=== PATIENT | male | born 1935 | race Caucasian/White ===

== ENCOUNTER 2016-10-06 13:03 | Inpatient (IN) | payer BC, MEDICARE ==
[2016-10-06] MEDS ORDERED: ceFAZolin 1 GM in Dextrose (*) 1 GM/50 ML BAG IVPB ONE (13:44)
[2016-10-06] MEDS ORDERED: NS 0.9% 1000 ML* 1,000 ML IV ONE (13:45)
[2016-10-06 14:21] LABS: Hematocrit 40 % (42-52); Hemoglobin 13.1 g/dl (14.0-18.0); Mean Corpuscular HGB Conc 33 g/dl (31-36); Mean Corpuscular Hemoglobin 30 pg (27-31); Mean Corpuscular Volume 91 fL (80-94); Mean Platelet Volume 8 um3 (7.4-10.4); Red Blood Count 4.42 10^6/ul (4.0-5.4); Red Cell Distribution Width 14 % (10.5-15); White Blood Count 16.9 10^3/ul (3.5-10.8)
--- NOTE | 2016-10-06 14:31 | RAD ---
HISTORY: Right leg erythema, cancer COMPARISONS: None relevant TECHNIQUE: Multiple transverse and longitudinal ultrasound images were obtained of the right lower extremity from the level of the common femoral vein inferiorly through to the infrapopliteal veins using grayscale, color Doppler, and spectral Doppler imaging with and without compression and with augmentation. Comparison images were obtained of the contralateral common femoral vein. FINDINGS: VEINS: The venous system of the right lower extremity is compressible throughout its course, with normal flow on color Doppler imaging and normal response to augmentation on spectral Doppler imaging. SOFT TISSUES: Unremarkable. OTHER FINDINGS: None. IMPRESSION: NO RIGHT LOWER EXTREMITY DEEP VEIN THROMBOSIS
--- NOTE | 2016-10-06 14:31 | RAD ---
HISTORY: Right leg erythema, pain COMPARISONS: None VIEWS: 6, Frontal, lateral, and oblique views of the right foreleg and right foot FINDINGS: BONE DENSITY: There is diffuse osteopenia. BONES: There is no displaced fracture. There is no appreciable erosion or periosteal reaction. There are calcaneal enthesophytes JOINTS: There is osteoarthritis of the first MCP joint and of the midfoot. There is osteoarthritis of the ankle. ALIGNMENT: There is no dislocation. SOFT TISSUES: There is peripheral arterial calcification OTHER FINDINGS: None. IMPRESSION: 1. OSTEOARTHRITIS. 2. PERIPHERAL ARTERIAL DISEASE. 3. NO ACUTE OSSEOUS INJURY TO THE RIGHT FOOT OR FORELEG. 4. NO APPRECIABLE EROSION OR PERIOSTEAL REACTION. IF SYMPTOMS PERSIST, RECOMMEND REPEAT IMAGING
[2016-10-06 14:36] LABS: Albumin 3.3 g/dL (3.2-5.2); BUN/Creatinine Ratio 14.6 (8-20); C Reactive Protein 123.89 mg/L (< 5.00); EGFR African American 64.1 (>60); EGFR Non-African American 49.9 (>60); Globulin 4.2 g/dL (2-4); Potassium 4.2 mmol/L (3.5-5.0); Total Bilirubin 0.6 mg/dL (0.2-1.0); Total Protein 7.5 g/dL (6.4-8.9)
--- NOTE | 2016-10-06 15:06 | ED ---
Benjamín Cummings Benjamin, scribed for Melonie Ruiz MD on 10/06/16 at 1420 . Lower Extremity - History of Current Complaint Chief Complaint: EDExtremityLower Stated Complaint: LOWER EXTREMITY PAIN Time Seen by Provider: 10/06/16 13:41 Hx Obtained From: Patient Mechanism Of Injury: Unknown - no known injury Onset of Pain: Days Onset/Duration: Still Present Severity Initially: Mild Severity Currently: Mild Pain Intensity: 0 Pain Scale Used: 0-10 Numeric Timing: Constant Location: Is Discrete @ - Right lower leg Associated Signs And Symptoms: Positive: Swelling, Redness Aggravating Factor(s): Movement Alleviating Factor(s): Rest Able to Bear Weight: Yes - Allergies/Home Medications Allergies/Adverse Reactions: Allergies Allergy/AdvReac Type Severity Reaction Status Date / Time No Known Allergies Allergy Verified 10/06/16 14:08 PMH/Surg Hx/FS Hx/Imm Hx Cardiovascular History: Reports: Hx Hypertension - Cancer History Cancer Type, Location and Year: Bladder CA, Prostate CA Infectious Disease History: No Infectious Disease History: Denies: Traveled Outside the [place] in Last 30 Days - Family History Known Family History: Negative: Cardiac Disease, Hypertension, Diabetes - Social History Occupation: Employed Full-time Lives: With Family Review of Systems Constitutional: Negative Eyes: Negative ENT: Negative Cardiovascular: Negative Respiratory: Negative Gastrointestinal: Negative Genitourinary: Negative Positive: Myalgia - RLE pain, Edema - right leg Positive: Other - erythema @ RLE Neurological: Negative Negative: Weakness, Paresthesia Psychological: Normal Positive: Depressed All Other Systems Reviewed And Are Negative: Yes Physical Exam Triage Information Reviewed: Yes Vital Signs On Initial Exam: Initial Vitals Temp Pulse Resp BP Pulse Ox 99.0 F 66 16 122/60 94 10/06/16 13:13 10/06/16 13:13 10/06/16 13:13 10/06/16 13:13 10/06/16 13:13 Vital Signs Reviewed: Yes Appearance: Positive: Well-Appearing, No Pain Distress, Well-Nourished Skin: Positive: Warm, Skin Color Reflects Adequate Perfusion, Erythema @ - RLE ( pham) Head/Face: Positive: Normal Head/Face Inspection Eyes: Positive: EOMI, FILOMENA ENT: Positive: Hearing grossly normal, Pharynx normal, TMs normal Neck: Positive: Supple, Nontender Respiratory/Lung Sounds: Positive: Clear to Auscultation, Breath Sounds Present Cardiovascular: Positive: RRR Abdomen Description: Positive: Nontender, No Organomegaly, Soft Bowel Sounds: Positive: Present Musculoskeletal: Positive: Strength/ROM Intact, Pain @ - right leg, Edema Right - right leg. Negative: Edema Left Neurological: Positive: Sensory/Motor Intact, Alert, Oriented to Person Place, Time, CN Intact II-III Psychiatric: Positive: Affect/Mood Appropriate Diagnostics - Vital Signs Vital Signs Temp Pulse Resp BP Pulse Ox 10/06/16 13:13 99.0 F 66 16 122/60 94 - Laboratory Lab Results: Lab Results 10/06/16 10/06/16 10/06/16 Range/Units 13:45 13:45 13:45 WBC 16.9 H (3.5-10.8) 10^3/ul RBC 4.42 (4.0-5.4) 10^6/ul Hgb 13.1 L (14.0-18.0) g/dl Hct 40 L (42-52) % MCV 91 (80-94) fL MCH 30 (27-31) pg MCHC 33 (31-36) g/dl RDW 14 (10.5-15) % Plt Count 376 (150-450) 10^3/ul MPV 8 (7.4-10.4) um3 Neut % (Auto) 91.5 H (38-83) % Lymph % (Auto) 3.7 L (25-47) % Webb % (Auto) 4.3 (1-9) % Eos % (Auto) 0.1 (0-6) % Baso % (Auto) 0.4 (0-2) % Absolute Neuts (auto) 15.5 H (1.5-7.7) 10^3/ul Absolute Lymphs (auto) 0.6 L (1.0-4.8) 10^3/ul Absolute Monos (auto) 0.7 (0-0.8) 10^3/ul Absolute Eos (auto) 0 (0-0.6) 10^3/ul Absolute Basos (auto) 0.1 (0-0.2) 10^3/ul Absolute Nucleated RBC 0 10^3/ul Nucleated RBC % 0 Sodium 136 (133-145) mmol/L Potassium 4.2 (3.5-5.0) mmol/L Chloride 102 (101-111) mmol/L Carbon Dioxide 28 (22-32) mmol/L Anion Gap 6 (2-11) mmol/L BUN 20 (6-24) mg/dL Creatinine 1.37 H (0.67-1.17) mg/dL Est GFR ( Amer) 64.1 (>60) Est GFR (Non-Af Amer) 49.9 (>60) BUN/Creatinine Ratio 14.6 (8-20) Glucose 105 H (70-100) mg/dL Lactic Acid 0.8 (0.5-2.0) mmol/L Calcium 9.0 (8.6-10.3) mg/dL Total Bilirubin 0.60 (0.2-1.0) mg/dL AST 12 L (13-39) U/L ALT 5 L (7-52) U/L Alkaline Phosphatase 90 (34-104) U/L C-Reactive Protein 123.89 H (< 5.00) mg/L Total Protein 7.5 (6.4-8.9) g/dL Albumin 3.3 (3.2-5.2) g/dL Globulin 4.2 H (2-4) g/dL Albumin/Globulin Ratio 0.8 L (1-3) Result Diagrams: 10/06/16 13:45 10/06/16 13:45 Lab Statement: Any lab studies that have been ordered have been reviewed, and results considered in the medical decision making process. - Radiology Right Lower Leg XR Xray Interpretation: Positive (See Comments) - IMPRESSION: 1. OSTEOARTHRITIS. 2. PERIPHERAL ARTERIAL DISEASE. 3. NO ACUTE OSSEOUS INJURY TO THE RIGHT FOOT OR FORELEG. 4. NO APPRECIABLE EROSION OR PERIOSTEAL REACTION. IF SYMPTOMS PERSIST, RECOMMEND REPEAT IMAGING Radiology Interpretation Completed By: Radiologist Right Foot XR Xray Interpretation: Positive (See Comments) Radiology Interpretation Completed By: Radiologist - Ultrasound No standard instances Ultrasound Interpretation: No Acute Changes - VQ Right Leg: NO DVT Lower Extremity Course/Dx - Course Course Of Treatment: 81 yo male with cellulitis to his left lower extremity with wbc of 17 to be admitted by Dr. Noyola and his team - Diagnoses Provider Diagnoses: Cellulitis - Physician Notifications Discussed Care of Patient With: Dr. Noyola (Hospitalist) @1758. Discharge - Discharge Plan Condition: Stable Disposition: ADMITTED TO [facility] documentation as recorded by the Benjamín sierra Benjamin accurately reflects the service I personally performed and the decisions made by me, Melonie Ruiz MD.
[2016-10-06] MEDS ORDERED: Loperamide CAP* 2 MG PO PRN (15:42)
--- NOTE | 2016-10-06 19:46 | HP ---
HOSPITAL MEDICINE HISTORY AND PHYSICAL: DATE OF ADMISSION: 10/06/16 PRIMARY CARE PHYSICIAN: Dr. Ramirez. ATTENDING PHYSICIAN: Dr. Jeevan Noyola *(dictation provided by Ash Carvajal NP) . CHIEF COMPLAINT: Right lower extremity redness and swelling. HISTORY OF PRESENT ILLNESS: Mr. Wilkinson is an 81-year-old male with a past medical history of bladder cancer, status post bladder and prostate resection with placement of conduit from the small bowel, who presents today to the hospital with concern for right lower extremity redness and swelling. Mr. Wilkinson states that his redness and swelling in his right lower extremity began 3 days ago. It has become more painful. He went to work today and showed his employer who felt that he should be evaluated. He did go to [facility] and then was transitioned to [facility] Emergency Department. The patient states he has felt warm with a temperature up to approximately 100.7. He denies any chills. He has been eating and drinking normally. He has no chest pain, shortness of breath, nausea, or abdominal pain. In the emergency room, Mr. Wilkinson was confirmed to have significant redness in the right lower extremity. He did have a foot x-ray, a lower extremity x-ray, and a venous Doppler study on the right, which were all negative. He does have a leukocytosis with a white count of 16.9. His creatinine is elevated at 1.37, but I do not have the baseline available for comparison. His C-reactive protein is 123.89. Based on Mr. Wilkinson's presentation with right lower extremity redness and swelling and suspected cellulitis, Hospital Medicine was called regarding admission. PAST MEDICAL HISTORY: 1. Bladder cancer, status post resection of bladder and prostate with placement of conduit from the small bowel 11 years ago. 2. Diverticulosis. 3. History of pulmonary fibrosis. MEDICATIONS: 1. Aspirin 81 mg p.o. daily. 2. Vitamin D 400 units p.o. daily. 3. Cyanocobalamin 500 mcg p.o. daily. 4. Loperamide 2 mg p.o. daily. 5. Multivitamin 1 tab p.o. daily. ALLERGIES: No known drug allergies. FAMILY HISTORY: The patient reports his father related to multiple myeloma , mother related to pancreatic cancer, and brother related to brain cancer. He has no healthcare proxy. REVIEW OF SYSTEMS: A 14-point review of systems was completed with Mr. Wilkinson and all those not mentioned above were negative. PHYSICAL EXAMINATION GENERAL: Mr. Wilkinson is lying in the bed. He is in no acute distress. He is calm and cooperative to my examination. VITAL SIGNS: Temperature 99.0, pulse rate 66, respiratory rate 16, O2 saturation 94% on room air, blood pressure 122/60. LUNGS: Clear to auscultation bilaterally with no accessory muscle use and good aeration. HEART: S1, S2. No murmur, rub, or gallop, and regular. ABDOMEN: Soft, nontender with bowel sounds positive x4. EXTREMITIES: No cyanosis. Positive for edema from the knee down to the foot on the right with erythema from the knee to the ankle. The foot is spared. NEURO: He is alert and oriented x3. He moves all extremities equally. There is no facial asymmetry or focal weakness. Extraocular movements are intact. ASSESSMENT AND PLAN: Mr. Wilkinson is an 81-year-old male with past medical history of bladder cancer, status post bladder and prostate resection with conduit through the small bowel and ostomy, who presents today for right lower extremity redness and swelling and suspected cellulitis. Our recommendations are for observation in the hospital for the followin. Cellulitis: The patient has significant leukocytosis and elevation of CRP secondary to the cellulitis. Our plans will be for intravenous antibiotics overnight. The patient will have the lower extremity elevated at all times. 2. DVT prophylaxis with heparin subcu. 3. Disposition to medical floor for observation. TIME SPENT: Approximately 60 minutes was spent on the admission of this patient , more than half time spent with the patient at the bedside reviewing the events leading up to this hospitalization, performing the physical examination, and reviewing my plan of care. ASH CARVAJAL NP CC: Dr. Ramirez * [id number]/[facility] #: [id number] SAL
[2016-10-06] MEDS: Heparin VIAL(*) 5000 UNITS/ML VIAL (FIVE THOUSAND) SUBCUT SCH (20:59)
[2016-10-06] MEDS: ceFAZolin 1 GM in Dextrose (*) 1 GM/50 ML BAG IVPB SCH (21:27)
[2016-10-06] MEDS: Acetaminophen TAB* 325 MG PO PRN (23:56)
[2016-10-07] MEDS: ceFAZolin 1 GM in Dextrose (*) 1 GM/50 ML BAG IVPB SCH ×3 (05:21→21:13)
[2016-10-07] MEDS: Heparin VIAL(*) 5000 UNITS/ML VIAL (FIVE THOUSAND) SUBCUT SCH ×3 (06:00→21:13)
[2016-10-07 06:40] LABS: Hematocrit 36 % (42-52); Hemoglobin 12.2 g/dl (14.0-18.0); Mean Corpuscular HGB Conc 34 g/dl (31-36); Mean Corpuscular Hemoglobin 31 pg (27-31); Mean Corpuscular Volume 90 fL (80-94); Mean Platelet Volume 8 um3 (7.4-10.4); Red Blood Count 3.99 10^6/ul (4.0-5.4); Red Cell Distribution Width 13 % (10.5-15); White Blood Count 9.5 10^3/ul (3.5-10.8)
[2016-10-07 06:53] LABS: BUN/Creatinine Ratio 14.3 (8-20); Calcium 8.4 mg/dL (8.6-10.3); EGFR African American 70.6 (>60); EGFR Non-African American 54.9 (>60); Potassium 4.1 mmol/L (3.5-5.0)
[2016-10-07] MEDS: Cholecalciferol TAB* 400 UNIT PO SCH (10:12)
[2016-10-07] MEDS: Cyanocobalamin TAB* 500 MCG PO SCH (10:12)
[2016-10-07] MEDS: Aspirin EC Low Dose* 81 MG TAB.EC PO SCH (10:12)
[2016-10-07] MEDS: Multivitamins/Minerals TAB PO SCH (10:12)
--- NOTE | 2016-10-07 14:23 | PN ---
Subjective Date of Service: 10/07/16 Interval History: This is an 81 yo gentleman with a h/o bladder CA s/p resection who presented with RLE cellulitis and admitted yesterday afternoon. Patient was placed on Cefazolin. He states that the leg appears better this. The associated pain and swelling have improved. He has been afebrile overnight, he was noted to be febrile yesterday afternoon to ~100.7F. He denies CP, SOB, abd pain, n/v. Objective Active Medications: Acetaminophen (Tylenol Tab*) 650 mg PO Q6H PRN PRN Reason: PAIN Last Admin: 10/06/16 23:56 Dose: 650 mg Aspirin (Aspirin Ec Low Dose*) 81 mg PO DAILY [facility] Last Admin: 10/07/16 10:12 Dose: 81 mg Cholecalciferol (Vitamin D Tab*) 400 unit PO DAILY [facility] Last Admin: 10/07/16 10:12 Dose: 400 unit Cyanocobalamin (Vitamin B12 Tab*) 500 mcg PO DAILY [facility] Last Admin: 10/07/16 10:12 Dose: 500 mcg Heparin Sodium (Porcine) (Heparin Vial(*)) 5,000 units SUBCUT Q8HR [facility] Last Admin: 10/07/16 06:00 Dose: 5,000 units Cefazolin Sodium/Dextrose (Kefzol 1 Gm In Dextrose Duplex (*)) 1 gm in 50 mls @ 200 mls/hr IVPB Q8H [facility] Last Admin: 10/07/16 05:21 Dose: 200 mls/hr Loperamide HCl (Imodium Cap*) 2 mg PO DAILY PRN PRN Reason: DIARRHEA Multivitamins/Minerals (Theragran/Minerals Tab*) 1 tab PO DAILY [facility] Last Admin: 10/07/16 10:12 Dose: 1 tab Vital Signs 10/07/16 11:10 Temperature 98.2 F Pulse Rate 62 Respiratory 16 Rate Blood Pressure 164/62 (mmHg) O2 Sat by Pulse 97 Oximetry Oxygen Devices in Use Now: None Appearance: Well appearing, in NAD Respiratory: Symmetrical Chest Expansion and Respiratory Effort, Clear to Auscultation Cardiovascular: NL Sounds; No Murmurs; No JVD, RRR Abdominal: NL Sounds; No Tenderness; No Distention Extremities: - - trace to 1+ RLE edema Skin: - - erythema from distal knee to proximal ankle without associated abscess. He has 2 areas of open ulceration over plantar surface of R 2nd and 3rd toes without significant surrounding erythema or fluctuance Neurological: Alert and Oriented x 3 Result Diagrams: 10/07/16 06:11 10/07/16 06:11 Additional Lab and Data: . Diagnostic Imaging: US LE - No DVT XR foot/lower leg- no erosion, evidence of PAD Assess/Plan/Problems-Billing Assessment: This is an 81 yo gentleman with a h/o bladder CA s/p resection with ileal conduit who presents with RLE cellulitis. - Patient Problems (1) Cellulitis Comment: Noted clinical improvement and afebrile overnight 1/ blood culture bottles were positive for gram + bacilli, now identified to be a bacillus species This likely represents a contaminant, but will repeat blood cultures today and wait for the remainder to be reported at 24 hours (2) Hypertension Comment: Patient noted to be moderately hypertensive today, normotensive at admission Unsure what the chronicity of this is Patient would benefit from further outpt monitoring and treatment if he's persistently hypertensive (3) History of bladder cancer Status and Disposition: Patient would benefit from establishing primary care services, he has not seen anyone routinely for quite some time. He requires continued hospital stay, will transition to inpatient status. Anticipate possible discharge tomorrow.
[2016-10-07] MEDS ORDERED: Calcium Carbonate CHEW TAB* 500 MG (TUMS) PO PRN (19:57)
[2016-10-07] MEDS: Acetaminophen TAB* 325 MG PO PRN (23:06)
[2016-10-08] MEDS ORDERED: hydrALAZINE IV* 20 MG/ML VIAL IV SLOW PU PRN
[2016-10-08] MEDS: ceFAZolin 1 GM in Dextrose (*) 1 GM/50 ML BAG IVPB SCH ×3 (05:46→22:12)
[2016-10-08] MEDS: Heparin VIAL(*) 5000 UNITS/ML VIAL (FIVE THOUSAND) SUBCUT SCH ×3 (05:46→22:22)
[2016-10-08 06:44] LABS: Hematocrit 38 % (42-52); Hemoglobin 12.6 g/dl (14.0-18.0); Mean Corpuscular HGB Conc 33 g/dl (31-36); Mean Corpuscular Hemoglobin 30 pg (27-31); Mean Corpuscular Volume 90 fL (80-94); Mean Platelet Volume 9 um3 (7.4-10.4); Red Blood Count 4.25 10^6/ul (4.0-5.4); Red Cell Distribution Width 13 % (10.5-15); White Blood Count 15.8 10^3/ul (3.5-10.8)
[2016-10-08 06:54] LABS: BUN/Creatinine Ratio 17.9 (8-20); C Reactive Protein 113.06 mg/L (< 5.00); Calcium 8.6 mg/dL (8.6-10.3); EGFR African American 76.9 (>60); EGFR Non-African American 59.8 (>60); Potassium 3.7 mmol/L (3.5-5.0)
[2016-10-08] MEDS: Aspirin EC Low Dose* 81 MG TAB.EC PO SCH (08:47)
[2016-10-08] MEDS: amLODIPine TAB* 5 MG PO SCH (08:47)
[2016-10-08] MEDS: Cholecalciferol TAB* 400 UNIT PO SCH (08:47)
[2016-10-08] MEDS: Multivitamins/Minerals TAB PO SCH (08:48)
[2016-10-08] MEDS: Cyanocobalamin TAB* 500 MCG PO SCH (08:48)
--- NOTE | 2016-10-08 16:54 | PN ---
Subjective Date of Service: 10/08/16 Interval History: Patient reports improvement in the appearance and pain in his leg. He had an episode of severe abdominal pain and vomiting shortly after dinner last night. He is now asx. He has been quite hypertensive last night and today. Denies CP or SOB. Objective Active Medications: Acetaminophen (Tylenol Tab*) 650 mg PO Q6H PRN PRN Reason: PAIN Last Admin: 10/07/16 23:06 Dose: 650 mg Amlodipine Besylate (Norvasc Tab*) 5 mg PO DAILY [facility] Last Admin: 10/08/16 08:47 Dose: 5 mg Aspirin (Aspirin Ec Low Dose*) 81 mg PO DAILY [facility] Last Admin: 10/08/16 08:47 Dose: 81 mg Calcium Carbonate (Tums*) 500 mg PO Q4H PRN PRN Reason: HEARTBURN Last Admin: 10/07/16 20:12 Dose: 500 mg Cholecalciferol (Vitamin D Tab*) 400 unit PO DAILY [facility] Last Admin: 10/08/16 08:47 Dose: 400 unit Cyanocobalamin (Vitamin B12 Tab*) 500 mcg PO DAILY [facility] Last Admin: 10/08/16 08:48 Dose: 500 mcg Heparin Sodium (Porcine) (Heparin Vial(*)) 5,000 units SUBCUT Q8HR [facility] Last Admin: 10/08/16 14:32 Dose: 5,000 units Hydralazine HCl (Apresoline Iv*) 10 mg IV SLOW PU Q4H PRN PRN Reason: BP > 170 Last Admin: 10/08/16 00:31 Dose: 10 mg Cefazolin Sodium/Dextrose (Kefzol 1 Gm In Dextrose Duplex (*)) 1 gm in 50 mls @ 200 mls/hr IVPB Q8H [facility] Last Admin: 10/08/16 14:32 Dose: 200 mls/hr Influenza Virus Vaccine (Fluarix *Quad* *) 0.5 ml IM .ONCE ONE Stop: 10/09/16 09:01 Loperamide HCl (Imodium Cap*) 2 mg PO DAILY PRN PRN Reason: DIARRHEA Multivitamins/Minerals (Theragran/Minerals Tab*) 1 tab PO DAILY [facility] Last Admin: 10/08/16 08:48 Dose: 1 tab Vital Signs: Temp Pulse Resp BP Pulse Ox 97.9 F 70 18 140/55 96 10/08/16 11:32 10/08/16 11:32 10/08/16 11:32 10/08/16 11:32 10/08/16 11:32 Oxygen Devices in Use Now: None Appearance: Well appearing elderly gentleman in NAD Respiratory: Symmetrical Chest Expansion and Respiratory Effort Cardiovascular: NL Sounds; No Murmurs; No JVD, RRR Abdominal: NL Sounds; No Tenderness; No Distention Extremities: - - trace RLE edema, improving Skin: - - improved erythema over RLL Neurological: Alert and Oriented x 3 Result Diagrams: 10/08/16 05:52 10/08/16 05:52 Additional Lab and Data: . Diagnostic Imaging: US LE - No DVT XR foot/lower leg- no erosion, evidence of PAD Assess/Plan/Problems-Billing Assessment: This is an 81 yo gentleman with a h/o bladder CA s/p resection with ileal conduit who presents with RLE cellulitis. - Patient Problems (1) Cellulitis Comment: Noted clinical improvement and afebrile since admission 08/18 blood culture bottle was initially positive, identified as bacillus which likely is a contaminant, repeat blood cultures from yesterday are still negative WBC climbed today, possibly due to his abdominal complaints from overnight? Will plan to continue Cefazolin (2) Hypertension Comment: Noted significant hypertension overnight and this am, asx Start amlodipine 5mg (3) History of bladder cancer Status and Disposition: Anticipate possible discharge tomorrow.
[2016-10-09] MEDS: ceFAZolin 1 GM in Dextrose (*) 1 GM/50 ML BAG IVPB SCH (05:55)
[2016-10-09] MEDS: Heparin VIAL(*) 5000 UNITS/ML VIAL (FIVE THOUSAND) SUBCUT SCH (05:56)
[2016-10-09 07:28] VITALS: BP 152/67
[2016-10-09] MEDS: Cholecalciferol TAB* 400 UNIT PO SCH (07:53)
[2016-10-09] MEDS: Multivitamins/Minerals TAB PO SCH (07:53)
[2016-10-09] MEDS: Aspirin EC Low Dose* 81 MG TAB.EC PO SCH (07:53)
[2016-10-09] MEDS: Acetaminophen TAB* 325 MG PO PRN (07:53)
[2016-10-09] MEDS: amLODIPine TAB* 5 MG PO SCH (07:54)
[2016-10-09] MEDS: Cyanocobalamin TAB* 500 MCG PO SCH (07:54)
[2016-10-09 08:22] LABS: Hematocrit 38 % (42-52); Hemoglobin 12.5 g/dl (14.0-18.0); Mean Corpuscular HGB Conc 33 g/dl (31-36); Mean Corpuscular Hemoglobin 30 pg (27-31); Mean Corpuscular Volume 90 fL (80-94); Mean Platelet Volume 8 um3 (7.4-10.4); Red Blood Count 4.22 10^6/ul (4.0-5.4); Red Cell Distribution Width 14 % (10.5-15); White Blood Count 11.9 10^3/ul (3.5-10.8)
[2016-10-09 08:50] LABS: BUN/Creatinine Ratio 14.9 (8-20); C Reactive Protein 161.64 mg/L (< 5.00); Calcium 8.7 mg/dL (8.6-10.3); EGFR Non-African American 57.6 (>60); Potassium 4.3 mmol/L (3.5-5.0)
[2016-10-09] MEDS ORDERED: Influenza VAC *QUAD* 2016-17* 0.5 ML SYRINGE IM ONE (09:00)
--- NOTE | 2016-10-09 20:12 | DS ---
DISCHARGE SUMMARY: DATE OF ADMISSION: 10/06/16 DATE OF DISCHARGE: 10/09/16 PRIMARY CARE PROVIDER: Dr. Ramirez. DISCHARGING PROVIDER: CHRISTY Singh SUPERVISING PHYSICIAN: Dr. Kia Huertas.* (DICTATED BY CHRISTY SINGH) PRIMARY DISCHARGE DIAGNOSIS: Cellulitis of right lower extremity. SECONDARY DISCHARGE DIAGNOSES: 1. Hypertension, discharged on new prescription for amlodipine. 2. Chronic kidney disease, stage 3. 3. History of bladder cancer, status post radical bladder and prostate resection with ileal conduit. DISCHARGE MEDICATIONS: 1. Aspirin 81 mg p.o. daily. 2. Keflex 500 mg p.o. 4 times daily x7 days. 3. Vitamin D 400 units daily. 4. Vitamin B12 500 mcg daily. 5. Imodium 2 mg p.o. daily as needed for diarrhea. 6. Multivitamin 1 tablet p.o. daily. 7. Amlodipine 5 mg p.o. daily. Medication changes: 1. Keflex x7 days. 2. Start amlodipine. HOSPITAL IMAGIN. Right foot and lower leg x-ray is negative for acute fracture or significant degenerative changes consistent with osteomyelitis. 2. Venous Doppler study is negative for DVT. 3. EKG shows a sinus rhythm without ischemic changes. HOSPITAL COURSE: This is an 81-year-old gentleman with a remote history of bladder cancer, who presented with complaints of right lower extremity redness and swelling for the 3 days prior. The patient denied any recent injury to the area. He was noted to be mildly febrile when first evaluated at [facility] with a temperature of 100.7 degrees Fahrenheit. He had a leukocytosis with a white blood cell count of 16,900, CRP elevated to 123 at the time of admission. Creatinine was also noted to be elevated to 1.37, but there is no historical data for comparison to tell what the acuity of this was. The patient was treated for right lower extremity cellulitis with cefazolin. Blood cultures were initially positive, 1 bottle grew gram-positive bacilli, later identified as bacillus, likely a contaminant. Repeat blood cultures were negative in all 4 bottles. The patient did have one episode of nausea and vomiting that occurred shortly after eating during his hospital stay, but then has since resolved. The appearance of his leg has improved dramatically and he just has some light erythema from his inferior pole of his knee to superior portion of his ankle. His edema has nearly completely resolved and he has been afebrile throughout his hospital stay. Of note, the patient was quite hypertensive during his hospital stay. At one point, systolic pressures reached approximately 200 mmHg. The patient was asymptomatic with this. It sounds like he has been noncompliant with followup with primary care. His blood pressure was initially treated with IV hydralazine , but remained persistently elevated and he was started on amlodipine. His creatinine did initially improve slightly and was 1.2 at the time of discharge. I feel that this is likely a chronic finding and likely secondary to long- standing untreated hypertension. DISPOSITION: The patient is being discharged to home. Follow up with his primary care provider is established for next week. He is being discharged with Keflex for the next 7 days and initiated on amlodipine for blood pressure control. This will likely need to be titrated further. Blood pressures prior to discharge were in the 140s to 150s. CHRISTY SINGH CC: Dr. Ramirez* [id number]/[facility] #: [id number] MTDD
== END 2016-10-09 11:30 | disposition home or self-care (01) | DRG 383 ==
LOC: ED 13:03 → MEDTELE 15:40 → MED 22:50 → OBSVTOIN 10-07 08:34
PROVIDERS: ADMIT Internal Medicine; ATTEND Internal Medicine
PROC: 3E0234Z Introduction of Serum, Toxoid and Vaccine into Muscle, Percutaneous Approach (ICD-10-PCS; principal; 2016-10-08)
DX: L03.115 Cellulitis of right lower limb (principal); J84.10 Pulmonary fibrosis, unspecified; N18.3 Chronic kidney disease, stage 3 (moderate); I12.9 Hypertensive chronic kidney disease with stage 1 through stage 4 chronic kidney disease, or unspecified chronic kidney disease; Z85.51 Personal history of malignant neoplasm of bladder; Z79.82 Long term (current) use of aspirin; R11.2 Nausea with vomiting, unspecified; Z80.0 Family history of malignant neoplasm of digestive organs; Z80.7 Family history of other malignant neoplasms of lymphoid, hematopoietic and related tissues; Z80.8 Family history of malignant neoplasm of other organs or systems; R10.9 Unspecified abdominal pain; Z23 Encounter for immunization
CPT/HCPCS: 36415; 80048; 80053; 83036; 83605; 84484; 85025; 86140; 87040; 90686; 93005; A9270-GY; J0360; J0690; J1644

== ENCOUNTER 2017-01-08 20:47 | Emergency (ER) | payer BC, MEDICARE ==
[2017-01-08 21:11] VITALS: BP 169/86
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
== END 2017-01-08 22:18 | disposition left against medical advice (07) ==
LOC: ED 20:47
DX: M79.645 Pain in left finger(s) (principal); R51 Headache; Z87.891 Personal history of nicotine dependence
CPT/HCPCS: 99282

== ENCOUNTER 2017-02-11 18:14 | Emergency (ER) | payer BC, MEDICARE ==
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
[2017-02-11 21:23] VITALS: BP 165/80
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
== END 2017-02-11 21:15 | disposition home or self-care (01) ==
LOC: ED 18:14
DX: S16.1XXA Strain of muscle, fascia and tendon at neck level, initial encounter (principal); M62.838 Other muscle spasm; V49.9XXA Car occupant (driver) (passenger) injured in unspecified traffic accident, initial encounter; Y93.9 Activity, unspecified; Y92.9 Unspecified place or not applicable; Y99.9 Unspecified external cause status
CPT/HCPCS: 72040; 72070; 99281

== ENCOUNTER → 2018-12-12 18:13 | Emergency (ER) | payer BC, MEDICARE ==
[~2018-12-12 18:13] MED LIST: Amoxicillin/Clavulanate TAB* 875 MG PO ONE; predniSONE TAB* 20 MG PO ONE
[2018-12-12 21:07] LABS: ABS Basophils 0.1 10^3/ul (0-0.2); ABS Eosinophils 0.6 10^3/ul (0-0.6); ABS Monocytes 0.6 10^3/ul (0-0.8); ABS Neutrophils 4.3 10^3/ul (1.5-7.7); ABS Nucleated RBC 0 10^3/ul; Eosinophil % 8.9 %; Hematocrit 36 % (36-46); Hemoglobin 11.8 g/dL (14.0-18.0); Lymphocyte % 15.1 %; Mean Corpuscular HGB Conc 33 g/dL (31-36); Mean Corpuscular Hemoglobin 28 pg (27-31); Mean Corpuscular Volume 85 fL (80-94); Mean Platelet Volume 8.5 fL (7.4-10.4); Nucleated Red Blood Cells % 0.2; Platelet Count 246 10^3/uL (150-450); Red Blood Count 4.19 10^6 /uL (4.18-5.48); Red Cell Distribution Width 15 % (10.5-15); White Blood Count 6.5 10^3/uL (3.5-10.8)
[2018-12-12 21:23] LABS: Albumin 3.8 g/dL (3.2-5.2); Albumin/Globulin Ratio 1.3 (1-3); BUN/Creatinine Ratio 14.9 (8-20); Calcium 8.6 mg/dL (8.6-10.3); EGFR African American 54.9 (>60); EGFR Non-African American 45.4 (>60); Globulin 2.9 g/dL (2-4); Potassium 4.3 mmol/L (3.5-5.0); Total Bilirubin 0.4 mg/dL (0.2-1.0); Total Protein 6.7 g/dL (6.4-8.9)
[2018-12-12 21:24] LABS: Troponin I 0.01 ng/mL (<0.04)
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
[2018-12-12 22:04] VITALS: BP 167/94
--- NOTE | 2018-12-13 10:31 | PN ---
Progress Note - Progress Note Date of Service: 12/12/18 Note: Pt. seen yesterday in ER for SOB. Treated for COPD exacerbation. Final radiology read on chest xray: IMPRESSION: 1. CARDIOMEGALY. 2. COPD. 3. SMALL RIGHT PLEURAL EFFUSION. 4. PULMONARY VASCULAR CONGESTION. R2 Xray findings noted on previous reads. No change in treatment needed at this time.
== END | disposition home or self-care (01) ==
LOC: ED 18:13
DX: J84.10 Pulmonary fibrosis, unspecified (principal); R06.02 Shortness of breath; R05 Cough; I51.7 Cardiomegaly; J44.9 Chronic obstructive pulmonary disease, unspecified; J90 Pleural effusion, not elsewhere classified; J81.0 Acute pulmonary edema; I10 Essential (primary) hypertension; Z86.74 Personal history of sudden cardiac arrest; I12.9 Hypertensive chronic kidney disease with stage 1 through stage 4 chronic kidney disease, or unspecified chronic kidney disease; N18.9 Chronic kidney disease, unspecified; Z85.46 Personal history of malignant neoplasm of prostate; Z85.51 Personal history of malignant neoplasm of bladder; Z88.1 Allergy status to other antibiotic agents; Z87.891 Personal history of nicotine dependence
CPT/HCPCS: 36415; 71046; 80053; 83605; 84484; 85025; 93005; 99213; A9270-GY; G0463; J7512

== ENCOUNTER 2019-04-18 11:43 | Emergency (ER) | payer BC, MEDICARE ==
--- NOTE | 2019-04-18 15:51 | ED ---
Shortness of Breath - HPI Summary HPI Summary: Patient is a 83-year-old male who presents emergency department for ongoing cough 2 weeks. Patient states last week he was feeling unwell with a cough and fever. He notes fever has resolved. Pt. notes he works at [employer]. Pt. states he went back to work yesterday and started to feel unwell again. Pt. states he would like a work excuse. Pt. today denies fever, cp , sob, abd. pain, V/D, urinary sxs. Pt. does not he was admitted a few months ago for pneumonia. Pt. states he has no past medical hx and does not take any medications on a daily basis. - History of Current Complaint Chief Complaint: EDFluSymptoms Time Seen by Provider: 04/18/19 15:20 Hx Obtained From: Patient - Allergy/Home Medications Allergies/Adverse Reactions: Allergies Allergy/AdvReac Type Severity Reaction Status Date / Time ciprofloxacin [From Cipro] AdvReac Hallucinati Verified 12/12/18 21:57 ons PMH/Surg Hx/FS Hx/Imm Hx Previously Healthy: Yes Endocrine/Hematology History: Denies: Hx Anticoagulant Therapy, Hx Blood Disorders Cardiovascular History: Reports: Hx Cardiac Arrest - pt. states he had no heartbeat briefly after skull fx, Hx Hypertension, Hx Peripheral Vascular Disease - possible Respiratory History: Reports: Hx Pneumonia, Other Respiratory Problems/ Disorders - PNEUMONIA 10/2018. Denies: Hx Asthma, Hx Chronic Obstructive Pulmonary Disease (COPD) History: Reports: Hx Chronic Renal Failure, Hx Kidney Stones, Other Problems/Disorders - urostomy, prostate removal Musculoskeletal History: Reports: Hx Arthritis Sensory History: Reports: Hx Contacts or Glasses Denies: Hx Hearing Aid Opthamlomology History: Reports: Hx Contacts or Glasses Neurological History: Reports: Other Neuro Impairments/Disorders - skull fx - Cancer History Cancer Type, Location and Year: Bladder CA, Prostate CA - Surgical History Surgery Procedure, Year, and Place: urostomy, prostate removal, bladder cancer removal Hx Anesthesia Reactions: No - Immunization History Date of Tetanus Vaccine: unk Date of Influenza Vaccine: none Infectious Disease History: No Infectious Disease History: Denies: Traveled Outside the [place] in Last 30 Days - Family History Known Family History: Positive: Non-Contributory Negative: Cardiac Disease, Hypertension, Diabetes - Social History Occupation: Employed Full-time Lives: Alone Alcohol Use: Daily Alcohol Amount: 1 glass red wine with dinner Hx Substance Use: No Substance Use Type: Reports: None Hx Tobacco Use: Yes Smoking Status (MU): Former Smoker Review of Systems Constitutional: Negative Negative: Fever, Chills Eyes: Negative ENT: Negative Cardiovascular: Negative Negative: Palpitations, Chest Pain Positive: Shortness Of Breath, Cough Gastrointestinal: Negative Negative: Abdominal Pain, Vomiting, Diarrhea Genitourinary: Negative Neurological: Negative All Other Systems Reviewed And Are Negative: Yes Physical Exam Triage Information Reviewed: Yes Vital Signs On Initial Exam: Initial Vitals Temp Pulse Resp BP Pulse Ox 99.0 F 81 18 184/100 94 04/18/19 11:52 04/18/19 11:52 04/18/19 11:52 04/18/19 11:52 04/18/19 11:52 Vital Signs Reviewed: Yes Appearance: Positive: Well-Appearing - Pt. sitting in hallway chair in NAD. Breathing normally on room air. Extremely talkative. Skin: Positive: Warm, Dry Head/Face: Positive: Normal Head/Face Inspection Eyes: Positive: Normal, EOMI Neck: Positive: Supple Respiratory/Lung Sounds: Positive: Breath Sounds Present, Other - Good breath sounds throughout with small expiratory wheeze in bases. Cardiovascular: Positive: Normal, RRR Musculoskeletal: Positive: Normal, Strength/ROM Intact Neurological: Positive: Normal, CN Intact II-III Psychiatric: Positive: Affect/Mood Appropriate Diagnostics - Vital Signs Vital Signs Temp Pulse Resp BP Pulse Ox 04/18/19 14:07 99.1 F 70 19 161/57 95 04/18/19 11:52 99.0 F 81 18 184/100 94 - Laboratory Result Diagrams: 04/18/19 15:59 04/18/19 15:59 Lab Statement: Any lab studies that have been ordered have been reviewed, and results considered in the medical decision making process. Course/Dx - Course Course Of Treatment: Pt. presenting with ongoing cough. Pt. is very well appearing. He was examined in the ED and has been talking to his neighbors none stop. Afebrile. O2 saturation on RA has stayed about 94% on RA. Labs and CXR obtained. IMPRESSION: Probable bilateral pneumonia right lower lobe with a small right pleural effusion. Labs show mild anemia. Normal WBC. Cr 1.5, CRP 92 , and BNP 909. Case discussed with Dr. Vega. Pt. is extremely well appearing with no signs of respiratory distress. O2 has remained in mid 90's. Given pt.'s presentation Dr. Vega feels pt. can be treated as an outpt. with zithromax and a few days of lasix. Pt. to f.u with the [facility] in 1-2 days for recheck and recheck labs. Pt. given strict return precautions. pt. understands and agrees with plan. - Diagnoses Differential Diagnosis/HQI/PQRI: Positive: Chest Wall Pain, COPD Exacerbation, Pneumonia, Pulmonary Edema Provider Diagnoses: Pneumonia, CHF (congestive heart failure) Discharge ED - Sign-Out/Discharge Documenting (check all that apply): Patient Departure Patient Received Moderate/Deep Sedation with Procedure: No - Discharge Plan Condition: Good Disposition: HOME Prescriptions: Azithromycin TAB* [Zithromax TAB (Z-MAGALIE) 250 mg #6 tabs] 2 tab PO .TODAY, THEN 1 DAILY #1 magalie Furosemide TAB* [Lasix TAB*] 40 mg PO DAILY #5 tab Patient Education Materials: Heart Failure (ED), Pneumonia (ED) Forms: *Work Release Referrals: [facility] [Outside] Additional Instructions: Call [facility] tomorrow morning to schedule an appointment in 1-2 days Take medication as directed Return to ER if symptoms change or worsen - Billing Disposition and Condition Condition: GOOD Disposition: Home
[2019-04-18 16:17] LABS: ABS Basophils 0.1 10^3/ul (0-0.2); ABS Eosinophils 0.5 10^3/ul (0-0.6); ABS Lymphocytes 0.6 10^3/ul (1.0-4.8); ABS Monocytes 0.9 10^3/ul (0-0.8); ABS Neutrophils 4.3 10^3/ul (1.5-7.7); Eosinophil % 7.7 %; Hematocrit 37 % (42-52); Hemoglobin 12.4 g/dL (14.0-18.0); Lymphocyte % 9.4 %; Mean Corpuscular HGB Conc 34 g/dL (31-36); Mean Corpuscular Hemoglobin 29 pg (27-31); Mean Corpuscular Volume 85 fL (80-94); Mean Platelet Volume 8.5 fL (7.4-10.4); Nucleated Red Blood Cells % 0.1; Platelet Count 296 10^3/uL (150-450); Red Cell Distribution Width 16 % (10-15); White Blood Count 6.4 10^3/uL (3.5-10.8)
[2019-04-18 16:25] LABS: Troponin I 0.01 ng/mL (<0.04)
[2019-04-18 16:51] LABS: Albumin 3.5 g/dL (3.2-5.2); Albumin/Globulin Ratio 1.1 (1-3); BUN/Creatinine Ratio 15.3 (8-20); C Reactive Protein 92.81 mg/L (<8.01); Calcium 9.1 mg/dL (8.6-10.3); EGFR African American 54.1 (>60); EGFR Non-African American 44.7 (>60); Globulin 3.1 g/dL (2-4); Potassium 4.2 mmol/L (3.5-5.0); Total Bilirubin 0.5 mg/dL (0.2-1.0); Total Protein 6.6 g/dL (6.4-8.9)
[2019-04-18 17:28] VITALS: BP 166/84
== END 2019-04-18 17:28 | disposition home or self-care (01) ==
LOC: ED 11:43
DX: J18.9 Pneumonia, unspecified organism (principal); I50.9 Heart failure, unspecified; R05 Cough; I25.2 Old myocardial infarction; N18.9 Chronic kidney disease, unspecified; Z87.442 Personal history of urinary calculi; Z87.891 Personal history of nicotine dependence
CPT/HCPCS: 36415; 71046; 80053; 83880; 84484; 85025; 86140; 99282

== ENCOUNTER 2019-10-01 13:21 | Inpatient (IN) | payer MEDICARE ==
--- NOTE | 2019-10-01 14:03 | ED ---
Respiratory - HPI Summary HPI Summary: 84 year old M [facility] complains of respiratory distress and cough since earlier today 10/01/2019. Patient denies any pain. Per EMS, pt was 86% on RA and was given DuoNeb and placed on O2 and is now 97%. He states he doesn't use oxygen all the time. The patient rates the pain 0/10 in severity. Symptoms aggravated by speaking. Symptoms alleviated by nothing. - History of Current Complaint Chief Complaint: EDRespiratoryDistress Stated Complaint: SOB PER EMS Time Seen by Provider: 10/01/19 13:54 Hx Obtained From: Patient Onset/Duration: Lasting Hours, Still Present Pain Intensity: 0 Character: Cough (Productive), Dyspnea at Rest Aggravating Factor(s): Nothing Alleviating Factor(s): Nothing - Allergy/Home Medications Allergies/Adverse Reactions: Allergies Allergy/AdvReac Type Severity Reaction Status Date / Time ciprofloxacin [From Cipro] AdvReac Hallucinati Verified 12/12/18 21:57 ons Home Medications: Home Medications Albuterol HFA INHALER* [Ventolin HFA Inhaler*] 2 puff INH Q6H PRN 10/01/19 [ History Confirmed 10/01/19] Aspirin EC TAB* [Ecotrin EC Low Dose 81 MG*] 81 mg PO DAILY 10/01/19 [History Confirmed 10/01/19] Cholecalciferol TAB* [Vitamin D TAB*] 400 unit PO DAILY 10/01/19 [History Confirmed 10/01/19] Cyanocobalamin TAB* [Vitamin B12 TAB*] 500 mcg PO DAILY 10/01/19 [History Confirmed 10/01/19] Loperamide CAP* [Imodium CAP*] 2 mg PO Q4H PRN 10/01/19 [History Confirmed 10/01] Multivit-Min/FA/Lycopen/Lutein [Centrum Silver Men Tablet] 1 tab PO DAILY [History Confirmed 10/01/19] Zinc Gluconate [Zinc] 10 mg PO Q3D 10/01/19 [History Confirmed 10/01/19] predniSONE 10 mg TAB [Deltasone 10 MG TAB*] 10 mg PO DAILY 10/01/19 [History Confirmed 10/01/19] PMH/Surg Hx/FS Hx/Imm Hx Endocrine/Hematology History: Denies: Hx Anticoagulant Therapy, Hx Blood Disorders Cardiovascular History: Reports: Hx Cardiac Arrest - pt. states he had no heartbeat briefly after skull fx, Hx Hypertension, Hx Peripheral Vascular Disease - possible Respiratory History: Reports: Hx Pneumonia, Other Respiratory Problems/ Disorders - PNEUMONIA 10/2018. Denies: Hx Asthma, Hx Chronic Obstructive Pulmonary Disease (COPD) History: Reports: Hx Chronic Renal Failure, Hx Kidney Stones, Other Problems/Disorders - urostomy, prostate removal Musculoskeletal History: Reports: Hx Arthritis Sensory History: Reports: Hx Contacts or Glasses Denies: Hx Hearing Aid Opthamlomology History: Reports: Hx Contacts or Glasses Neurological History: Reports: Other Neuro Impairments/Disorders - skull fx - Cancer History Cancer Type, Location and Year: Bladder CA, Prostate CA - Surgical History Surgery Procedure, Year, and Place: urostomy, prostate removal, bladder cancer removal Hx Anesthesia Reactions: No - Immunization History Date of Tetanus Vaccine: unk Date of Influenza Vaccine: none Infectious Disease History: No Infectious Disease History: Denies: Traveled Outside the [place] in Last 30 Days - Family History Known Family History: Negative: Cardiac Disease, Hypertension, Diabetes - Social History Alcohol Use: Occasionally Alcohol Amount: 1 glass red wine with dinner Hx Substance Use: No Substance Use Type: Reports: None Hx Tobacco Use: Yes Smoking Status (MU): Former Smoker Review of Systems Constitutional: Negative - negative - pain Negative: Fever Positive: Shortness Of Breath, Cough All Other Systems Reviewed And Are Negative: Yes Physical Exam - Summary Physical Exam Summary: Appearance: The patient is well-nourished in no acute distress and in no acute pain. Skin: The skin is warm and dry, and skin color reflects adequate perfusion. HEENT: The head is normocephalic and atraumatic. The pupils are equal and reactive. The conjunctivae are clear and without drainage. Nares are patent and without drainage. Mouth reveals moist mucous membranes, and the throat is without erythema and exudate. The external ears are intact. The ear canals are patent and without drainage. The tympanic membranes are intact. Neck: The neck is supple with full range of motion and non-tender. There are no carotid bruits. There is no neck vein distension. Respiratory: Chest is non-tender. Lungs are clear to auscultation and breath sounds are symmetrical and equal. Cardiovascular: Tachycardic. Irregularly irregular heartbeat. Abdomen: The abdomen is soft and non-tender. There are normal bowel sounds heard in all four quadrants and there is no organomegaly palpated. Musculoskeletal: There is no back tenderness noted. Extremities are non-tender with full range of motion. There is good capillary refill. There is no peripheral edema or calf tenderness elicited. Neurological: Patient is alert and oriented to person, place and time. The patient has symmetrical motor strength in all four extremities. Cranial nerves are grossly intact. Deep tendon reflexes are symmetrical and equal in all four extremities. Psychiatric: The patient has an appropriate affect and does not exhibit any anxiety or depression. Triage Information Reviewed: Yes Vital Signs On Initial Exam: Initial Vitals Temp Pulse Resp BP Pulse Ox 99.2 F 126 20 107/76 92 10/01/19 13:23 10/01/19 13:23 10/01/19 13:23 10/01/19 13:23 10/01/19 13:23 Vital Signs Reviewed: Yes Procedures - Sedation Patient Received Moderate/Deep Sedation with Procedure: No Diagnostics - Vital Signs Vital Signs Temp Pulse Resp BP Pulse Ox 10/01/19 13:32 90 30 92 10/01/19 13:23 99.2 F 84 21 107/76 92 - Laboratory Result Diagrams: 10/01/19 14:13 10/01/19 14:13 Lab Statement: Any lab studies that have been ordered have been reviewed, and results considered in the medical decision making process. - Radiology CXR Radiology Interpretation Completed By: Radiologist Summary of Radiographic Findings: IMPRESSION: RIGHT PLEURAL EFFUSION WITH RIGHT BASILAR ATELECTASIS VERSUS CONSOLIDATION. RECOMMEND FOLLOW-UP UNTIL RESOLUTION TO EXCLUDE UNDERLYING PULMONARY PARENCHYMAL PATHOLOGY. has reviewed this report. - EKG 1334 Cardiac Rate: Tachycardia EKG Rhythm: Atrial Fibrillation Summary of EKG Findings: An EKG at 1334 reveals atrial fibrillation, PVCs, and nondiagnostic lateral T wave changes at a rate of 115 bpm. has reviewed and interpreted this EKG. Disposition - Course Course Of Treatment: Mr. Wilkinson presented with marginal respiratory status. Chest x-ray showed infiltrate versus atelectasis in the right side. He had no leukocytosis or fever but he did have a troponin of 0.4 and a d-dimer of 1 thousand. He cannot have a study as his GFR is 20. I spoke with Dr. Orourke of the hospitalists about further evaluation. - Diagnoses Provider Diagnoses: Pulmonary embolism - Physician Notifications Discussed Care Of Patient With: Da Orourke - admit Time Discussed With Above Provider: 15:46 Instructed by Provider To: Admit As Inpatient - Critical Care Time Critical Care Time: 30-74 min Discharge ED - Sign-Out/Discharge Documenting (check all that apply): Patient Departure - admit - Discharge Plan Condition: Stable Disposition: ADMITTED TO [facility] Referrals: Timothy Ramirez MD [Primary Care Provider] - - Billing Disposition and Condition Condition: STABLE Disposition: Admitted to [facility] - Attestation Statements Document Initiated by Scribe: Yes Documenting Scribe: [place] Provider For Whom Juan Joséibdominique is Documenting (Include Credential): Avinash Coelho MD Scribe Attestation: IPipe, scribed for Avinash Coelho MD on 10/01/19 at 1737. Scribe Documentation Reviewed: Yes Provider Attestation: The documentation as recorded by the Pipe [place] accurately reflects the service I personally performed and the decisions made by me, Avinash Coelho MD Status of Scribe Document: Viewed
[2019-10-01 14:27] LABS: Hematocrit 38 % (42-52); Hemoglobin 12.4 g/dL (14.0-18.0); Mean Corpuscular HGB Conc 33 g/dL (31-36); Mean Corpuscular Hemoglobin 30 pg (27-31); Mean Corpuscular Volume 91 fL (80-94); Red Blood Count 4.11 10^6 /uL (4.18-5.48); Red Cell Distribution Width 15 % (10-15); White Blood Count 10.5 10^3/uL (3.5-10.8)
[2019-10-01 14:44] LABS: INR 1.05 (0.82-1.09)
[2019-10-01 14:48] LABS: Troponin I 0.41 ng/mL (<0.03)
[2019-10-01 14:49] LABS: Albumin 3.1 g/dL (3.2-5.2); Anion Gap 6 mmol/L (2-11); CO2 Carbon Dioxide 28 mmol/L (22-32); Calcium 8.7 mg/dL (8.6-10.3); Chloride 105 mmol/L (101-111); Potassium 4.4 mmol/L (3.5-5.0); Sodium 139 mmol/L (135-145)
[2019-10-01 14:51] LABS: ABS Lymphocytes 0.2 10^3/ul (1.0-4.8); ABS Monocytes 0.7 10^3/ul (0-0.8); ABS Neutrophils 9.5 10^3/ul (1.5-7.7); Eosinophil % 0.1 %; Lymphocyte % 1.9 %; Mean Platelet Volume 9.7 fL (7.4-10.4); Nucleated Red Blood Cells % 0.1; Platelet Count 99 10^3/uL (150-450)
[2019-10-01 14:55] LABS: ALT 6 U/L (7-52); AST 16 U/L (13-39); Alkaline Phosphatase 81 U/L (34-104); BUN/Creatinine Ratio 18.3 (8-20); Blood Urea Nitrogen 54 mg/dL (6-24); C Reactive Protein 258.91 mg/L (<8.01); EGFR African American 24.7 (>60); EGFR Non-African American 20.4 (>60); Globulin 3.1 g/dL (2-4); Glucose 109 mg/dL (70-100); Total Protein 6.2 g/dL (6.4-8.9)
[2019-10-01] MEDS ORDERED: Ondansetron INJ* 2 MG/ML VIAL IV PRN (16:45)
[2019-10-01] MEDS ORDERED: Lactated Ringers 1000 ML Bag* 1,000 ML IV SCH ×2 (17:00→17:32)
[2019-10-01] MEDS ORDERED: Loperamide CAP* 2 MG PO PRN (17:25)
[2019-10-01 17:29] LABS: Influenza A Molecular POSITIVE (Negative)
[2019-10-01] MEDS ORDERED: Enoxaparin(*) 30 MG/0.3 ML SYR SUBCUT SCH (18:00)
[2019-10-01 18:07] LABS: Troponin I 0.44 ng/mL (<0.03)
[2019-10-01 18:33] LABS: Urine Appearance Turbid; Urine Bilirubin Negative (Negative); Urine Blood 1+ (Negative); Urine Color Amber; Urine Glucose Negative (Negative); Urine Ketones Negative (Negative); Urine Nitrite Negative (Negative); Urine Protein 2+(100 mg/dL) (Negative); Urine Specific Gravity 1.012 (1.010-1.030); Urine Urobilinogen Negative (Negative)
[2019-10-01 18:47] LABS: Urine Bacteria Absent (Absent); Urine Red Blood Cell Trace(0-2/hpf) (Absent); Urine White Blood Cell 3+(>20/hpf) (Absent)
[2019-10-01 20:06] LABS: Anion Gap 7 mmol/L (2-11); BUN/Creatinine Ratio 18.3 (8-20); Blood Urea Nitrogen 52 mg/dL (6-24); CO2 Carbon Dioxide 25 mmol/L (22-32); Calcium 8.4 mg/dL (8.6-10.3); Chloride 107 mmol/L (101-111); EGFR African American 25.8 (>60); EGFR Non-African American 21.3 (>60); Glucose 80 mg/dL (70-100); Potassium 4.5 mmol/L (3.5-5.0); Sodium 139 mmol/L (135-145)
[2019-10-01 20:22] LABS: Troponin I 0.41 ng/mL (<0.03)
[2019-10-01] MEDS: methylPREDNISolone SOD 40 MG* 1 ML VIAL IV SCH (20:26)
[2019-10-01] MEDS: cefTRIAXone(*) 1 GM in NS 0.9% 50 ML* 50 ML IVPB SCH (20:28)
[2019-10-01] MEDS: Enoxaparin(*) 100 MG/ML SYR SUBCUT SCH (20:30)
[2019-10-01] MEDS: guaiFENesin ER TAB 600 MG PO SCH (20:31)
[2019-10-01] MEDS: Benzonatate CAP* 100 MG PO PRN (20:32)
[2019-10-01] MEDS: DOXYcycline IV* 100 MG in NS 0.9% 250 ML* 250 ML IVPB SCH (20:58)
--- NOTE | 2019-10-01 21:38 | HP ---
CC: Dr. Da Orourke; Dr. Timothy Ramirez * ADMISSION HISTORY AND PHYSICAL: DATE OF ADMISSION: 10/01/19 MY ATTENDING WHILE IN THE HOSPITAL: Dr. Da Orourke.* (DICTATED BY CHRISTY HAYES) PRIMARY CARE PROVIDER: Dr. Timothy Ramirez. CHIEF COMPLAINT: Shortness of breath times several days. HISTORY OF PRESENT ILLNESS: Mr. Wilkinson is an 84-year-old male with past medical history of pulmonary fibrosis, heart failure with reduced ejection fraction, bladder cancer, chronic hypertension, and chronic kidney disease, who presents to the emergency department after EMS was activated to his apartment for respiratory distress. The patient is unable to give further details about this and all the patient is able to state at this point is that this all came on very suddenly, he woke up and realized that it had been several days since he last had anything to drink and that when he , he wanted his organs donated, anything that is recyclable. He repeats these phrases several times, is not able to give other coherent history including anybody who would be able to provide additional history. The patient denies fevers, chills, abdominal pain , or chest pain. The patient states he has been coughing, he cannot state for how long, he does not know if he is bringing up sputum. He does not know if there is blood in the sputum. He states he is thirsty and that he has diarrhea and he cannot state whether this is new or not, but states that sometimes his diarrhea is uncontrollable. The patient states he does not take any medications at home, but there are medications listed on his medication reconciliation. The patient does not know if he had any recent long immobilizations, but in the emergency department, the patient was found to be tachycardic, hypotensive, tachypneic, hypoxic requiring 3 L of oxygen to maintain O2 sat above 90%, and the chest x-ray consistent with a pneumonia with associated pleural effusion. The patient had an elevated D-dimer, elevated creatinine, elevated troponin, severely elevated CRP, BNP greater than 1300, and though it was not initially available, the patient was found to be influenza A positive during his course in the emergency department. The patient 's blood pressure was trending down with the lowest blood pressure recorded being 71/55. The patient is quite delirious. Due to concern for respiratory distress, we were asked to evaluate the patient for admission to the hospital. PAST MEDICAL HISTORY: Heart failure with reduced ejection fraction with most recent EF 40% to 45%; history of bladder cancer; history of questionable pulmonary fibrosis; diverticulosis; hypertension; chronic kidney disease, baseline creatinine 1.5. PAST SURGICAL HISTORY: Ileal conduit placement, otherwise unknown. MEDICATIONS: The patient states he takes no medications. The patient's medications, however, from his doctor are: 1. Albuterol inhaler 2 puffs inhalation q.6 hours as needed. 2. Aspirin 81 mg p.o. daily. 3. Vitamin D 1 tab p.o. daily. 4. Vitamin B12 one tab p.o. daily. 5. Loperamide 2 mg p.o. q.4 hours as needed. 6. Multivitamin 1 tab p.o. daily. 7. Prednisone 10 mg p.o. as directed. 8. Zinc 1 tab p.o. every 3 days. ALLERGIES: CIPROFLOXACIN. FAMILY HISTORY: Per previous records, the patient's mother of pancreatic cancer. The patient's father of multiple myeloma. The patient's brother of brain cancer. SOCIAL HISTORY: The patient is a former smoker, quit in 1966. The patient used to drink 1 glass of wine at night. The patient denies illicit drug use. The patient used to work at [employer]. He is not , has no children. Has no surrogate decision maker on record except for a sister, both of whose numbers that were provided were called and neither one of them offered answering machine or an answer. REVIEW OF SYSTEMS: A 10-point review of systems was reviewed, it is negative except as above in the HPI. This is very limited and questionably reliable. PHYSICAL EXAMINATION GENERAL: The patient is an 84-year-old male who appears stated age, sitting in bed with significantly increased work of breathing. VITAL SIGNS: At the time of evaluation, temperature 99.6, pulse rate 99, respiratory rate 26, oxygen saturation 92% on 3 L, blood pressure palpated systolic to 95. HEENT: Head is normocephalic, atraumatic. Sclerae anicteric. No conjunctival injection. Nasal mucosa moist. Oral mucosa dry. No pharyngeal erythema or exudate. NECK: Supple, nontender. No lymphadenopathy. No carotid bruits auscultated. No JVD. RESPIRATORY: Wheezing and rhonchi heard throughout the right lung and some rhonchi heard in the left lung, not as much compared to the right lung. CARDIAC: Tachycardic, irregular rate and rhythm. No clicks, murmurs, gallops, or rubs. Pulses 2+ in bilateral dorsalis pedis, posterior tibial, and radial areas. The patient's left calf is 13 inches in diameter. The patient's right calf is 15 inches in diameter. ABDOMEN: Soft, nontender, and nondistended. Bowel sounds present, normoactive in all 4 quadrants. No hepatosplenomegaly. No abdominal bruits auscultated. No hepatojugular reflux. GENITOURINARY: No suprapubic or CVA tenderness. NEUROLOGIC: Alert, oriented to self, not to place or time. No other focal deficits. PSYCHIATRIC: Pleasant and cooperative. Fixated on his demise and the donation of his organs. SKIN: Clean, dry, and intact. No rashes. DIAGNOSTIC STUDIES/LAB DATA: White blood cell count 10.5, hemoglobin 12.4, platelet count 99. INR 1.05, D-dimer greater than 1050. Sodium 139, potassium 4.4, chloride 105, carbon dioxide 28, anion gap 6, BUN 54, creatinine 2.95, glucose 109, lactic acid 1.6, calcium 8.7. Bilirubin 0.7, AST 16, ALT 6, alkaline phosphatase 81. Troponin-I 0.41. CRP 258.91. BNP greater than 1300. Albumin 3.1, globulin 3.1. Influenza A positive, influenza B negative. EKG shows atrial fibrillation; rate of 115; paired PVCs, different morphologies ; T- wave inversion in lead 1, V5, V6, aVL; Q waves present inferiorly. Compared to previous exam, atrial fibrillation is new. T-wave inversions are worsened. Q waves are not new. Chest x-ray read as right pleural effusion with right basilar atelectasis verus consolidation, recommend followup until resolution to exclude underlying pulmonary parenchymal pathology. Venous Doppler studies from 10/01/19, read as left peroneal vein is poorly visualized. Otherwise, there is generalized slow flow with no evidence for deep vein thrombosis. ASSESSMENT AND PLAN: Impression: Mr. Wilkinson is an 84-year-old male with past medical history significant for heart failure with reduced ejection fraction, questionable pulmonary fibrosis, bladder cancer, hypertension, chronic kidney disease, who presents to the emergency department after an illness of unknown duration with respiratory distress, poor oral intake, found to have acute kidney injury, elevated troponin, influenza A positivity, and possible pneumonia. The patient will be admitted to the ICU for oxygen, antibiotics, Tamiflu, and close hemodynamic monitoring. 1. Acute on chronic hypoxic respiratory failure due to influenza A, possible bacterial pneumonia with possible underlying pulmonary fibrosis. The patient is currently requiring 3 L of oxygen to maintain his oxygen saturation above 90% ; however, the patient is markedly tachypneic and may need higher flow of oxygen to decrease his rate of breathing. Overnight, the patient will be admitted to the ICU for close monitoring. The patient has no risk factors for resistant organisms, though he will be treated with doxycycline due to the increased incidence of staph infection with influenza A, bacterial superinfection, particularly with the patient's pleural effusion associated with his possible pneumonia. The patient will have an ABG. The patient will have DuoNeb and aggressive pulmonary toileting. 2. Severe sepsis. The patient has a slightly elevated temperature, but not a true fever, elevated pulse rate, low blood pressure, elevated respiratory rate. The patient has known flu, may also have a bacterial superinfection. The patient is being treated with ceftriaxone and doxycycline as well. The patient' s initial lactic acid was normal; this will be repeated. The patient's creatinine is 2.95; this may be related to his apparent dehydration; however, this may also be related to severe sepsis with end-organ dysfunction given elevated troponin and low platelets. The patient has an extremely elevated BNP and known history of heart failure with reduced ejection fraction. The patient will be given 1 L saline bolus. His blood pressure will be assessed after that as well as his respiratory status. If the patient needs aggressive fluid resuscitation, he may need vasopressin agents and/or BiPAP if he begins to develop pulmonary edema on top of his other significant pulmonary pathology. The patient is listed as taking prednisone at home. It is unclear whether he was taking this chronically. The patient will be treated with methylprednisolone 40 mg IV q.12 hours for blood pressure support in case he is relatively adrenally insufficient. 3. Heart failure with reduced ejection fraction. The patient was noted to have an ejection fraction of 40% to 45%. The patient's BNP has increased since then. The patient will have a repeat transthoracic echocardiogram tomorrow. 4. Asymmetric leg swelling. The patient has asymmetric leg swelling with an elevated D-dimer, elevated troponin, and elevated BNP above his baseline despite clinical hypovolemia. These are all possibly indicative of a pulmonary embolism. However, this is not the most likely diagnosis and a CTA of the abdomen and pelvis is not possible. The patient had lower extremity venous Doppler studies, which did not visualize the peroneal vein, though this is in the leg that is not swollen. The patient, however, has new atrial fibrillation and for this will be anticoagulated with Lovenox, renally dosed at 1 mg/kg q.24 hours. 5. Atrial fibrillation. The patient has new-onset atrial fibrillation. It is unlikely this is causing his symptoms, but it is likely a response to the systemic insult. As above, the patient will be anticoagulated for this given its unknown duration as well as presumptive possibility of pulmonary embolism with severe respiratory distress. 6. History of bladder cancer. Obtain urinalysis. This does not appear to be an active issue. 7. Thrombocytopenia. Watch this closely with initiation of heparin therapy. This is likely related to the patient's sepsis. 8. Hypertension. The patient is currently hypotensive. The patient's medication reconciliation with no antihypertensives. 9. Acute on chronic kidney injury. The patient's creatinine is up to 2.95 from a baseline of approximately 1.5. It is unclear if this is from his sepsis , whether this is from dehydration. The patient will be given 1 L of lactated Ringer's and this will be rechecked later in the night. With any improvement, the patient will be continued on fluids with close monitoring of his respiratory status for fluid overload. 10. DVT prophylaxis. Full-dose Lovenox renally dosed as above. 11. FEN. The patient will have a heart-healthy diet, caffeine okay, and fluids as above. TIME SPENT: Approximately 75 minutes was spent on admission of this patient, 30 of which is spent [id number] with the patient obtaining history and physical and discussing treatment plan. The plan was discussed with my attending , Dr. Da Orourke; he is in agreement. CHRISTY HAYES [id number]/[facility] #: [id number] [facility] HOSPITALRossy
[2019-10-01] MEDS ORDERED: Furosemide IV* 10 MG/ML 2 ML VIAL (20 MG) IV ONE (21:46)
[2019-10-01] MEDS: Oseltamivir CAP* 30 MG CAP PO SCH (21:55)
[2019-10-01 23:14] LABS: Troponin I 0.42 ng/mL (<0.03)
[2019-10-02] MEDS: methylPREDNISolone SOD 40 MG* 1 ML VIAL IV SCH (05:05)
[2019-10-02 05:19] LABS: Calcium 8.2 mg/dL (8.6-10.3); Magnesium 2.3 mg/dL (1.9-2.7); Potassium 4.9 mmol/L (3.5-5.0)
[2019-10-02 05:24] LABS: BUN/Creatinine Ratio 19.7 (8-20); EGFR African American 24.8 (>60); EGFR Non-African American 20.5 (>60)
[2019-10-02 05:30] LABS: ABS Lymphocytes 0.2 10^3/ul (1.0-4.8); ABS Monocytes 0.3 10^3/ul (0-0.8); ABS Neutrophils 7.2 10^3/ul (1.5-7.7); Eosinophil % 0.1 %; Hematocrit 37 % (42-52); Hemoglobin 12.4 g/dL (14.0-18.0); Mean Corpuscular HGB Conc 33 g/dL (31-36); Mean Corpuscular Hemoglobin 31 pg (27-31); Mean Corpuscular Volume 92 fL (80-94); Mean Platelet Volume 9.8 fL (7.4-10.4); Platelet Count 88 10^3/uL (150-450); Red Blood Count 4.02 10^6 /uL (4.18-5.48); Red Cell Distribution Width 16 % (10-15); White Blood Count 7.7 10^3/uL (3.5-10.8)
[2019-10-02] MEDS ORDERED: NS 0.9% 250 ML* 250 ML ONE (11:30)
[2019-10-02] MEDS: DOXYcycline IV* 100 MG in NS 0.9% 250 ML* 250 ML IVPB SCH ×2 (11:33→21:31)
[2019-10-02] MEDS: Enoxaparin(*) 100 MG/ML SYR SUBCUT SCH (11:35)
[2019-10-02] MEDS: guaiFENesin ER TAB 600 MG PO SCH ×2 (11:35→21:02)
--- NOTE | 2019-10-02 11:49 | ECHO ---
*[facility]* [place] [address] Fax #: [phone] Transthoracic Echocardiogram Patient: Isaias Wilkinson : 1935 Study Date: 10/02/2019 Age: 84 Gender: M HR: 113 bpm Height: 71 in /180.3 cm BSA: 2.2 m^2 Weight: 219.5 lb /99.8 kg BMI: 30.7 kg/m^2 *Staff Registered Nurse: * Savannah Baker *Referring Physician: * Chris Pittman *Reading Physician: * Earl Marcos MD History: Atrial fibrillation. Congestive heart failure. Risk factors: Former tobacco use. Hypertension. Conclusions Summary: - Left ventricle: Systolic function is moderately to severely reduced. The estimated ejection fraction is 25-30%. Severe global hypokinesis. - Ventricular septum: The interventricular septum appears dyssynchronous due to LBBB - Atrial septum: No defect or patent foramen ovale is identified. - Mitral valve: There is trace to mild regurgitation. - Aortic valve: There is no evidence of stenosis. - Tricuspid valve: There is trace regurgitation. - Pulmonary arteries: Systolic pressure is mildly increased, estimated to be 41 mm Hg. - Compared to study of 10/17/18, the left ventricle function is lower Study data: Transthoracic echocardiogram. Procedure: Transthoracic echocardiography was performed. Image quality was adequate. The study was technically limited due to poor patient compliance and Smoking history. Complete 2D, spectral Doppler, and color flow Doppler. Location: Bedside. Patient status: Inpatient. Patient room number: 432. Rhythm: Atrial fibrillation. Findings Left ventricle: The cavity size is at the upper limits of normal. Wall thickness is moderately increased. Systolic function is moderately to severely reduced. The estimated ejection fraction is 25-30%. Left ventricular diastolic function parameters are indeterminate. Right ventricle: The cavity size is dilated. Wall thickness is normal. Systolic function is mildly to moderately reduced. Ventricular septum: The ventricular septum is normal. The interventricular septum appears dyssynchronous due to LBBB Left atrium: The atrium is dilated. Right atrium: Not well visualized. Atrial septum: No defect or patent foramen ovale is identified. Mitral valve: The valve is structurally normal. There is no evidence of stenosis. There is trace to mild regurgitation. Aortic valve: The valve is trileaflet. The leaflets are normal thickness. There is no evidence of stenosis. There is no significant regurgitation. Tricuspid valve: The valve is structurally normal. There is no evidence of stenosis. There is trace regurgitation. Pulmonic valve: The valve is structurally normal. There is no evidence of stenosis. There is trace regurgitation. Aorta: The aortic root appears normal. Pericardium: There is no significant pericardial effusion. Pulmonary arteries: Systolic pressure is mildly increased, estimated to be 41 mm Hg. Pulmonary veins: The Pulmonary veins appear normal. Measurements Left ventricle Value Ref Aortic valve Value Ref VIKA, LAX 5.5 cm 4.2 - Peak v, S 1.38 m/sec ----- 5.8 VTI, S 21.8 cm ----- ESD, LAX (H) 4.8 cm 2.5 - Mean grad, S 4.0 mm Hg ----- 4.0 Peak grad, S 8.0 mm Hg ----- FS, LAX (L) 12 % RAMON, VTI 2.69 cm^2 ----- PW, ED, LAX (H) 1.7 cm 0.6 - RAMON, Vmax 2.28 cm^2 ----- 1.0 FS (L) 12 % Mitral valve Value Ref Mid-wall FS 5 % -------- Peak E 1.13 m/sec ----- PW, ED (H) 1.7 cm 0.6 - Peak A 0 m/sec ----- 1.0 Decel time 174 ms ----- PW/ID, ED 0.3 -------- Peak grad, D 5.1 mm Hg ----- E', lat olga, TDI (L) 8.6 cm/sec >=10.0 Peak E/A ratio 376.7 ----- E/e', lat olga, TDI 13 -------- E', med olga, TDI 7.0 cm/sec >=7.0 Pulmonic valve Value Ref E/e', med olga, TDI 16 -------- Peak v, S 0.89 m/sec --- -- E', avg, TDI 7.8 cm/sec -------- Peak grad, S 3.0 mm Hg --- -- E/e', avg, TDI 14 <=14 Tricuspid valve Value Ref LVOT Value Ref TR peak v (H) 2.98 m/sec <=2.8 Diam, S 2.00 cm -------- Peak RV-RA grad, S 36 mm Hg ----- Area 3.1 cm^2 -------- Max TR river 3.02 m/sec ----- Peak river, S 1 m/sec -------- Mean grad, S 3 mm Hg -------- Aortic root Value Ref SV 59 ml -------- Root diam 3.6 cm <4.3 Ventricular septum Value Ref Ascending aorta Value Ref IVS, ED (H) 1.5 cm 0.6 - AAo AP diam, S 3.2 cm ----- 1.0 Inferior vena cava Value Ref Right ventricle Value Ref Diam 2.4 cm ----- VIKA, LAX 3.1 cm -------- VIKA minor ax, A4C (H) 4.8 cm 1.9 - mid 3.5 Left atrium Value Ref Vol/bsa, ES, 1-p (H) 44 ml/m^2 12 - 37 A4C Vol/bsa, ES, 1-p (H) 45 ml/m^2 11 - 43 A2C Legend: (L) and (H) megan values outside specified reference range. Prepared and electronically signed by Earl Marcos MD 10/02/2019 11:49
--- NOTE | 2019-10-02 12:42 | PN ---
Subjective Date of Service: 10/02/19 Interval History: Patient will open his eyes to stimulation, but does not answer verbally to questioning. ROS unable to be obtained. Mental status is fluctuating through the day. Family History: Unchanged from Admission Social History: Unchanged from Admission Past Medical History: Unchanged from Admission Objective Active Medications: Acetaminophen (Tylenol Tab*) 650 mg PO Q6H PRN PRN Reason: MILD PAIN or TEMP > 100.4 Albuterol/Ipratropium (Duoneb (Albuterol 2.5 Mg/Ipratropium 0.5 Mg)) 1 neb INH Q6H PRN PRN Reason: SOB/WHEEZING Benzonatate (Tessalon Cap*) 100 mg PO BID PRN PRN Reason: COUGH Last Admin: 10/01/19 20:32 Dose: 100 mg Enoxaparin Sodium (Lovenox(*)) 90 mg SUBCUT DAILY [facility] Guaifenesin (Mucinex*) 1,200 mg PO BID [facility] Last Admin: 10/02/19 11:35 Dose: 1,200 mg Doxycycline Hyclate 100 mg/ (Sodium Chloride) 250 mls @ 250 mls/hr IVPB Q12H [facility] Last Admin: 10/02/19 11:33 Dose: 250 mls/hr Ceftriaxone Sodium 1 gm/ (Sodium Chloride) 50 mls @ 200 mls/hr IVPB Q24H [facility] Last Admin: 10/01/19 20:28 Dose: 200 mls/hr Loperamide HCl (Imodium Cap*) 2 mg PO Q4H PRN PRN Reason: DIARRHEA Methylprednisolone Sodium Succinate (Solu-Medrol 40 Mg) 40 mg IV Q12H [facility] Last Admin: 10/02/19 05:05 Dose: 40 mg Ondansetron HCl (Zofran Inj*) 4 mg IV Q6H PRN PRN Reason: NAUSEA Oseltamivir Phosphate (Tamiflu Cap*) 30 mg PO BEDTIME [facility] Stop: 10/05/19 21:01 Last Admin: 10/01/19 21:55 Dose: 30 mg Vital Signs - 8 hr 10/02/19 10/02/19 10/02/19 07:15 08:00 11:58 Temperature 98.1 F 97.1 F Pulse Rate 92 98 Respiratory 22 22 24 Rate Blood Pressure 132/55 124/54 (mmHg) O2 Sat by Pulse 98 99 Oximetry Oxygen Devices in Use Now: OxyMask Appearance: Patient is an 84yo male who appears stated age and is sitting in the bed with increased work of breathing. Eyes: No Scleral Icterus, PERRLA Ears/Nose/Mouth/Throat: NL Teeth, Lips, Gums, Clear Oropharnyx, - - Oral Mucosa Dry Neck: NL Appearance and Movements; NL JVP, Trachea Midline Respiratory: Symmetrical Chest Expansion and Respiratory Effort, - - Rhonchi throughout with expiratory wheezing. Cardiovascular: NL Sounds; No Murmurs; No JVD, No Edema, - - Irregularly Irregular Rhythm, Tachycardia. Abdominal: NL Sounds; No Tenderness; No Distention, No Hepatosplenomegaly Lymphatic: No Cervical Adenopathy Extremities: No Edema, No Clubbing, Cyanosis Skin: No Rash or Ulcers, No Nodules or Sclerosis Neurological: - - Arousable. Result Diagrams: 10/02/19 04:34 10/02/19 04:34 Microbiology and Other Data: Microbiology 10/01/19 17:35 Aerobic Blood Culture - Preliminary Blood Venous Anaerobic Blood Culture - Preliminary Klebsiella Pneumoniae 10/01/19 17:35 Aerobic Blood Culture - Preliminary Blood Venous Klebsiella Pneumoniae Anaerobic Blood Culture - Preliminary Klebsiella Pneumoniae 10/01/19 21:40 Legionella Urinary Antigen - Final Urine Negative Legionella Antigen Streptococcus pneumoniae Ag Screen - Final Negative S. pneumo Antigen Assess/Plan/Problems-Billing Assessment: Patient is an 84yo male with a PMH for HFrEF, Possible Pulmonary fibrosis, bladder cancer s/p ileoconduit, here with influenza, likely bacterial pneumonia , BEL and possible PE, stable on treatment. - Patient Problems (1) Pneumonia Current Visit: No Status: Acute Code(s): J18.9 - PNEUMONIA, UNSPECIFIED ORGANISM SNOMED Code(s): 697529779 Comment: - Infiltrate on CXR and CT - Bacteremia, likely lung source (Pending Speciation) - Continue Ceftriaxone and Doxycycline - Large Effusion, Previously present. - Likely Bacterial Superinfection on Influenza. - Continue steroids for adjunctive penumonia therapy. (2) Flu Current Visit: Yes Status: Acute Code(s): J11.1 - FLU DUE TO UNIDENTIFIED INFLUENZA VIRUS W OTH RESP MANIFEST SNOMED Code(s): 8835899 Comment: - Likely contributing to Respiratory symptoms - Continue Tamiflu (3) Bacteremia Current Visit: Yes Status: Acute Code(s): R78.81 - BACTEREMIA SNOMED Code( s): 6323456 Comment: - /4 bottles with GNRs. - Likely lung source, but also awaiting urine cultures - Continue Ceftriaxone and doxycycline. (4) History of bladder cancer Current Visit: No Status: Acute Code(s): Z85.51 - PERSONAL HISTORY OF MALIGNANT NEOPLASM OF BLADDER SNOMED Code(s): 146783847 Comment: - Urostomy in place without issues. - Supportive care (5) Hypertension Current Visit: No Status: Acute Code(s): I10 - ESSENTIAL (PRIMARY) HYPERTENSION SNOMED Code(s): 03165549 Comment: - Initially hypotensive, responded well with fluids - Not on home medications. (6) BEL (acute kidney injury) Current Visit: Yes Status: Acute Code(s): N17.9 - ACUTE KIDNEY FAILURE, UNSPECIFIED SNOMED Code(s): 19045968 Comment: - Cret to ~3 from 1.5 - Likely ATN from poor oral intake in setting of Flu - No improvement with fluids and worsening of respiraotry status requiring lasix - Appears hypoveolemic, further clarity pending echo. (7) Pulmonary embolism Current Visit: Yes Status: Acute Code(s): I26.99 - OTHER PULMONARY EMBOLISM WITHOUT ACUTE COR PULMONALE SNOMED Code(s): 58761576 Comment: - Elevated D-Dimer, Asymmetrical Leg swelling, Elevated Trop, Elevated BNP despite apparent hypovolemia all concerning for PE - VQ scan intermediate risk - Continue Full Strength Lovenox. (8) HFrEF (heart failure with reduced ejection fraction) Current Visit: Yes Status: Acute Code(s): I50.20 - UNSPECIFIED SYSTOLIC ( CONGESTIVE) HEART FAILURE SNOMED Code(s): 480149624 Comment: - Most recent EF 40-45% - Apparently Hypoveolemic, respiratory status worsened with fluids - Unclear cause, likely ischemic - Repeat Echo pending - Use fluids judiciously - Will need BB, ? ACEI/ARB at D/C. (9) Atrial fibrillation Current Visit: Yes Status: Acute Code(s): I48.91 - UNSPECIFIED ATRIAL FIBRILLATION SNOMED Code(s): 30134240 Comment: - New onset, unclear duration - Relatively good rate control without medications, likely being driven by acute illness - Anticoagulate with Lovenox - Echocardiogram pending (10) DVT prophylaxis Current Visit: No Status: Acute Code(s): ZVW6294 - SNOMED Code(s): 602965871 Comment: - Full Dose Lovenox renally dosed. (11) Full code status Current Visit: No Status: Acute Code(s): Z78.9 - OTHER SPECIFIED HEALTH STATUS SNOMED Code(s): 683626730 Status and Disposition: Inpatient for respiratory distress.
[2019-10-02] MEDS: Oseltamivir CAP* 30 MG CAP PO SCH (21:03)
[2019-10-02] MEDS: cefTRIAXone(*) 1 GM in NS 0.9% 50 ML* 50 ML IVPB SCH (21:03)
[2019-10-03] MEDS: guaiFENesin ER TAB 600 MG PO SCH ×2 (08:17→21:59)
[2019-10-03] MEDS: DOXYcycline IV* 100 MG in NS 0.9% 250 ML* 250 ML IVPB SCH ×2 (08:18→21:59)
[2019-10-03] MEDS: methylPREDNISolone SOD 40 MG* 1 ML VIAL IV SCH (08:18)
[2019-10-03] MEDS: Enoxaparin(*) 100 MG/ML SYR SUBCUT SCH (08:18)
[2019-10-03] MEDS: Acetaminophen TAB* 325 MG PO PRN ×2 (10:45→22:10)
--- NOTE | 2019-10-03 13:05 | CONSULT ---
Palliative / Hospice Consult Ordering Provider: Chris Pittman - PCPChen Referal Reason: Goals of care/no bowel meds/no narcotics - Subjective Code Status: DNR Advance Directives Location: No Advance Directives MOLST Part A Completed: Yes - completed on chart MOLST Part E Completed:: Yes - completed on chart - History or Present Illness History or Present Illness: 84yo male with pul fibrosis and CHF presents with SOB. PMH is significant for pulmonary fibrosis, CHF, bladder ca, HTN, CKD and diverticulosis. 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 Studies ekg-afib, CXR-R pleural effusion with R basilar atelectasis vs consolidation, Echo-EF 25-30%, global hypokinesis, CXR #2 no change, ekg afib, chest CT-large R pleural effusion, atelectasis of RML and RLL and LLL, V/Q scan-intermediate probability of PE, doppler slow flow no DVT, H/H 12.4/37, BUN/Cr 58/2.94, egfr 20.5, Ca 8.2, CRP 258.91, alb 3.1 and BNP>1300, Ddimer >1050, INR 1.05 and BC K. pneumonia. Pt admitted to ICU with acute on chronic resp failure secondary to flu, severe sepsis, HF, new onset afib and PE. Pt has 3 prior ER visits and one hospitalization for pneumonia. All history is from pt and medical record. Lab Values: Laboratory Last Values WBC 7.7 10^3/uL (3.5-10.8) 10/02/19 04:34 RBC 4.02 10^6 /uL (4.18-5.48) L 10/02/19 04:34 Hgb 12.4 g/dL (14.0-18.0) L 10/02/19 04:34 Hct 37 % (42-52) L 10/02/19 04:34 MCV 92 fL (80-94) 10/02/19 04:34 MCH 31 pg (27-31) 10/02/19 04:34 MCHC 33 g/dL (31-36) 10/02/19 04:34 RDW 16 % (10-15) H 10/02/19 04:34 Plt Count 88 10^3/uL (150-450) L 10/02/19 04:34 MPV 9.8 fL (7.4-10.4) 10/02/19 04:34 Neut % (Auto) 93.8 % 10/02/19 04:34 Lymph % (Auto) 2.0 % 10/02/19 04:34 [place] % (Auto) 3.8 % 10/02/19 04:34 Eos % (Auto) 0.1 % 10/02/19 04:34 Baso % (Auto) 0.3 % 10/02/19 04:34 Absolute Neuts (auto) 7.2 10^3/ul (1.5-7.7) 10/02/19 04:34 Absolute Lymphs (auto) 0.2 10^3/ul (1.0-4.8) L 10/02/19 04:34 Absolute Monos (auto) 0.3 10^3/ul (0-0.8) 10/02/19 04:34 Absolute Eos (auto) 0.0 10^3/ul (0-0.6) 10/02/19 04:34 Absolute Basos (auto) 0.0 10^3/ul (0-0.2) 10/02/19 04:34 Absolute Nucleated RBC 0.0 10^3/ul 10/02/19 04:34 Nucleated RBC % 0.0 10/02/19 04:34 INR (Anticoag Therapy) 1.05 (0.82-1.09) 10/01/19 14:13 D-Dimer, Quantitative > 1050 ng/mL (Less Than 230) H 10/01/19 14:13 Patient Temperature Not Reportable 10/01/19 19:10 ABG pH 7.34 (7.35-7.45) L 10/01/19 19:10 ABG pH (Temp Correct) Not Reportable 10/01/19 19:10 ABG pCO2 49 mmHg (35-45) H 10/01/19 19:10 ABG pCO2 (Temp Corrct Not Reportable 10/01/19 19:10 ABG pO2 97 mmHg (80-100) 10/01/19 19:10 ABG pO2 (Temp Correct Not Reportable 10/01/19 19:10 ABG HCO3 24.9 mmol/L (19-31) 10/01/19 19:10 ABG O2 Saturation 99.0 % (94.0-98.0) H 10/01/19 19:10 ABG Base Excess 0.0 mmol/L (-2.0-2.0) 10/01/19 19:10 Respiration Rate Not Reportable 10/01/19 19:10 O2 Delivery Device oxymask 10/01/19 19:10 Ventilator Type Not Reportable 10/01/19 19:10 Vent Mode Not Reportable 10/01/19 19:10 FiO2 36 10/01/19 19:10 Inspiratory Time Not Reportable 10/01/19 19:10 PEEP Not Reportable 10/01/19 19:10 Pressure Support Not Reportable 10/01/19 19:10 Pressure Control Not Reportable 10/01/19 19:10 EPAP Not Reportable 10/01/19 19:10 IPAP Not Reportable 10/01/19 19:10 BiPAP Not Reportable 10/01/19 19:10 Sodium 140 mmol/L (135-145) 10/02/19 04:34 Potassium 4.9 mmol/L (3.5-5.0) 10/02/19 04:34 Chloride 105 mmol/L (101-111) 10/02/19 04:34 Carbon Dioxide 28 mmol/L (22-32) 10/02/19 04:34 Anion Gap 7 mmol/L (2-11) 10/02/19 04:34 BUN 58 mg/dL (6-24) H 10/02/19 04:34 Creatinine 2.94 mg/dL (0.67-1.17) H 10/02/19 04:34 Est GFR ( Amer) 24.8 (>60) 10/02/19 04:34 Est GFR (Non-Af Amer) 20.5 (>60) 10/02/19 04:34 BUN/Creatinine Ratio 19.7 (8-20) 10/02/19 04:34 Glucose 101 mg/dL (70-100) H 10/02/19 04:34 Lactic Acid 1.3 mmol/L (0.5-2.0) 10/01/19 18:23 Calcium 8.2 mg/dL (8.6-10.3) L 10/02/19 04:34 Magnesium 2.3 mg/dL (1.9-2.7) 10/02/19 04:34 Total Bilirubin 0.70 mg/dL (0.2-1.0) 10/01/19 14:13 AST 16 U/L (13-39) 10/01/19 14:13 ALT 6 U/L (7-52) L 10/01/19 14:13 Alkaline Phosphatase 81 U/L (34-104) 10/01/19 14:13 Troponin I 0.40 ng/mL (<0.03) H* 10/02/19 01:48 C-Reactive Protein 258.91 mg/L (<8.01) H 10/01/19 14:13 B-Natriuretic Peptide > 1300 pg/mL (<=100) H 10/01/19 14:13 Total Protein 6.2 g/dL (6.4-8.9) L 10/01/19 14:13 Albumin 3.1 g/dL (3.2-5.2) L 10/01/19 14:13 Globulin 3.1 g/dL (2-4) 10/01/19 14:13 Albumin/Globulin Ratio 1.0 (1-3) 10/01/19 14:13 Urine Color Kika 10/01/19 17:32 Urine Appearance Turbid 10/01/19 17:32 Urine pH 7.0 (5-9) 10/01/19 17:32 Ur Specific [place] 1.012 (1.010-1.030) 10/01/19 17:32 Urine Protein 2+(100 mg/dl) (Negative) A 10/01/19 17:32 Urine Ketones Negative (Negative) 10/01/19 17: Urine Blood 1+ (Negative) A 10/01/19 17:32 Urine Nitrate Negative (Negative) 10/01/19 17:32 Urine Bilirubin Negative (Negative) 10/01/19 17:32 Urine Urobilinogen Negative (Negative) 10/01/19 17:32 Ur Leukocyte Esterase 3+ (Negative) A 10/01/19 17:32 Urine WBC (Auto) 3+(>20/hpf) (Absent) A 10/01/19 17:32 Urine RBC (Auto) Trace(0-2/hpf) (Absent) 10/01/19 17:32 Urine Bacteria Absent (Absent) 10/01/19 17:32 Urine Glucose Negative (Negative) 10/01/19 17:32 Urine Ascorbic Acid * (Negative) A 10/01/19 17:32 Influenza A (Rapid) Positive (Negative) H 10/01/19 17:05 Influenza B (Rapid) Not Reportable 10/01/19 17:05 - Objective Active Medications: Acetaminophen (Tylenol Tab*) 650 mg PO Q6H PRN PRN Reason: MILD PAIN or TEMP > 100.4 Last Admin: 10/03/19 10:45 Dose: 650 mg Albuterol/Ipratropium (Duoneb (Albuterol 2.5 Mg/Ipratropium 0.5 Mg)) 1 neb INH Q6H PRN PRN Reason: SOB/WHEEZING Benzonatate (Tessalon Cap*) 100 mg PO BID PRN PRN Reason: COUGH Last Admin: 10/01/19 20:32 Dose: 100 mg Enoxaparin Sodium (Lovenox(*)) 90 mg SUBCUT DAILY [facility] Last Admin: 10/03/19 08:18 Dose: 90 mg Guaifenesin (Mucinex*) 1,200 mg PO BID [facility] Last Admin: 10/03/19 08:17 Dose: 1,200 mg Doxycycline Hyclate 100 mg/ (Sodium Chloride) 250 mls @ 250 mls/hr IVPB Q12H [facility] Last Admin: 10/03/19 08:18 Dose: 250 mls/hr Ceftriaxone Sodium 1 gm/ (Sodium Chloride) 50 mls @ 200 mls/hr IVPB Q24H [facility] Last Admin: 10/02/19 21:03 Dose: 200 mls/hr Loperamide HCl (Imodium Cap*) 2 mg PO Q4H PRN PRN Reason: DIARRHEA Methylprednisolone Sodium Succinate (Solu-Medrol 40 Mg) 40 mg IV DAILY [facility] Last Admin: 10/03/19 08:18 Dose: 40 mg Ondansetron HCl (Zofran Inj*) 4 mg IV Q6H PRN PRN Reason: NAUSEA Oseltamivir Phosphate (Tamiflu Cap*) 30 mg PO BEDTIME [facility] Stop: 10/05/19 21:01 Last Admin: 10/02/19 21:03 Dose: 30 mg Vital Signs: Vital Signs: Temp Pulse Resp BP Pulse Ox 97.6 F 96 20 125/74 96 10/03/19 07:15 10/03/19 07:15 10/03/19 08:00 10/03/19 07:15 10/03/19 07:15 Patient Weight: Weight 89.675 kg Intake and Output: Intake & Output 10/01/19 10/02/19 10/03/19 10/04/19 06:59 06:59 06:59 06:59 Intake Total 330 1920 360 Output Total 925 1175 Balance -595 745 360 Weight 89.675 kg Intake: IV Fluids 330 30 ABX - CEFTRIAXONE 55 15 ABX - DOXYCYCLINE 255 15 NS (0.9%) 20 IVPB 560 ABX - CEFTRIAXONE 50 ABX - DOXYCYCLINE 510 Oral 0 1330 360 Output: Urine 350 Urostomy 575 1175 Other: # Bowel Movements 0 ADLs: Meal Record Start: 10/01/19 20: 11 Freq: DAILY@0900,1400,1800 Status: Active Protocol: Created 10/01/19 20:11 System (Rec: 10/01/19 20:11 System [id number]) Document 10/02/19 09:00 [id number] (Rec: 10/02/19 13:37 [id number] MED-M19) Document 10/02/19 13:40 [id number] (Rec: 10/02/19 13:42 [id number] MED-M19) Document 10/02/19 17:46 [id number] (Rec: 10/02/19 17:46 [id number] TELE-C03) Document 10/03/19 09:00 [id number] (Rec: 10/03/19 09:50 [id number] TELE-C01) Intake and Output Start: 10/01/19 13: 26 Freq: Status: Active Protocol: Created 10/01/19 13:26 System (Rec: 10/01/19 13:26 System [id number]) Intake and Output Start: 10/01/19 20: 11 Freq: DAILY@0600,1400,2200 Status: Active Protocol: Created 10/01/19 20:11 System (Rec: 10/01/19 20:11 System [email or web address]-M12) Document 10/01/19 21:39 (Rec: 10/01/19 21:41 TELE-C10) Document 10/02/19 05:48 [id number] (Rec: 10/02/19 05:51 [id number] TELE-C05) Document 10/02/19 13:40 [id number] (Rec: 10/02/19 13:42 [id number] MED-M19) Document 10/02/19 21:57 [id number] (Rec: 10/02/19 21:59 [id number] TELE-C03) Document 10/03/19 00:28 [id number] (Rec: 10/03/19 00:28 [id number] TELE-C01) Document 10/03/19 04:49 [id number] (Rec: 10/03/19 04:49 [id number] TELE-C01) Eyes: No Scleral Icterus, PERRLA Ears/Nose/Mouth/Throat: NL Teeth, Lips, Gums, Clear Oropharnyx, - - Oral Mucosa Dry Neck: NL Appearance and Movements; NL JVP, Trachea Midline Cardiovascular: NL Sounds; No Murmurs; No JVD, No Edema, - - Irregularly Irregular Rhythm, Tachycardia. Abdominal: NL Sounds; No Tenderness; No Distention, No Hepatosplenomegaly Extremities: No Edema, No Clubbing, Cyanosis Neurological: Alert and Oriented x 3, - - Arousable. - Assessment Assessment: 84yo male with pulmonary fibrosis admitted with acute on chronic respiratory failure interested in outpatient palliative care - Plan Consult Plan (MU): Palliative Plan: Long discussion with pt about goals of care. Outpatient palliative care information/brochure given. Pt is interested in [facility] and is interested in [facility] after [facility]. environmental sustainability manager has sent referral and will talk with nurse at [facility] to ensure [facility] referral is sent after [facility]. Discussed/ completed MOLST pt doesn't want CPR or to be intubated or a feeding tube but is okay with trial of noninvasive ventilation. Pt is interested in donating his organs when he dies. Left message with sister Jazmin. Pt lives at [facility] which he likes. Pt is interested in as many services as his medicare will allow. KPS 60%, PPS 60% - Time On Unit Date of Evaluation: 10/03/19 Hospice Consult Time in: 12:30 Hospice Consult Time Out: 13:30 Hospice Consult Time Total: 60 > 50% of Time Spend In Counseling or Coordinating Care: Yes
--- NOTE | 2019-10-03 16:53 | PN ---
Subjective Date of Service: 10/03/19 Interval History: Reports feeling better.sob improving Family History: Unchanged from Admission Social History: Unchanged from Admission Past Medical History: Unchanged from Admission Objective Active Medications: Acetaminophen (Tylenol Tab*) 650 mg PO Q6H PRN PRN Reason: MILD PAIN or TEMP > 100.4 Last Admin: 10/03/19 10:45 Dose: 650 mg Albuterol/Ipratropium (Duoneb (Albuterol 2.5 Mg/Ipratropium 0.5 Mg)) 1 neb INH Q6H PRN PRN Reason: SOB/WHEEZING Benzonatate (Tessalon Cap*) 100 mg PO BID PRN PRN Reason: COUGH Last Admin: 10/01/19 20:32 Dose: 100 mg Enoxaparin Sodium (Lovenox(*)) 90 mg SUBCUT DAILY [facility] Last Admin: 10/03/19 08:18 Dose: 90 mg Guaifenesin (Mucinex*) 1,200 mg PO BID [facility] Last Admin: 10/03/19 08:17 Dose: 1,200 mg Doxycycline Hyclate 100 mg/ (Sodium Chloride) 250 mls @ 250 mls/hr IVPB Q12H [facility] Last Admin: 10/03/19 08:18 Dose: 250 mls/hr Ceftriaxone Sodium 1 gm/ (Sodium Chloride) 50 mls @ 200 mls/hr IVPB Q24H [facility] Last Admin: 10/02/19 21:03 Dose: 200 mls/hr Loperamide HCl (Imodium Cap*) 2 mg PO Q4H PRN PRN Reason: DIARRHEA Methylprednisolone Sodium Succinate (Solu-Medrol 40 Mg) 40 mg IV DAILY [facility] Last Admin: 10/03/19 08:18 Dose: 40 mg Ondansetron HCl (Zofran Inj*) 4 mg IV Q6H PRN PRN Reason: NAUSEA Oseltamivir Phosphate (Tamiflu Cap*) 30 mg PO BEDTIME [facility] Stop: 10/05/19 21:01 Last Admin: 10/02/19 21:03 Dose: 30 mg Vital Signs - 8 hr 10/03/19 11:32 Temperature 97.8 F Pulse Rate 98 Respiratory 20 Rate Blood Pressure 112/76 (mmHg) O2 Sat by Pulse 100 Oximetry Oxygen Devices in Use Now: OxyMask Eyes: No Scleral Icterus Ears/Nose/Mouth/Throat: NL Teeth, Lips, Gums Neck: NL Appearance and Movements; NL JVP Respiratory: Symmetrical Chest Expansion and Respiratory Effort Cardiovascular: NL Sounds; No Murmurs; No JVD, RRR Abdominal: NL Sounds; No Tenderness; No Distention Extremities: No Edema Neurological: Alert and Oriented x 3 Result Diagrams: 10/02/19 04:34 10/02/19 04:34 Microbiology and Other Data: Microbiology 10/01/19 17:35 Aerobic Blood Culture - Preliminary Blood Venous Anaerobic Blood Culture - Preliminary Klebsiella Pneumoniae 10/01/19 17:35 Aerobic Blood Culture - Preliminary Blood Venous Klebsiella Pneumoniae Anaerobic Blood Culture - Preliminary Klebsiella Pneumoniae 10/01/19 21:40 Legionella Urinary Antigen - Final Urine Negative Legionella Antigen Streptococcus pneumoniae Ag Screen - Final Negative S. pneumo Antigen Assess/Plan/Problems-Billing Assessment: Patient is an 84yo male with a PMH for HFrEF, Possible Pulmonary fibrosis, bladder cancer s/p ileoconduit, here with influenza, likely bacterial pneumonia , BEL and possible PE, stable on treatment. - Patient Problems (1) Bacteremia Current Visit: Yes Status: Acute Code(s): R78.81 - BACTEREMIA SNOMED Code( s): 5743839 Comment: - 4/4 bottles with GNRs. - Likely lung source, but also awaiting urine cultures - Continue Ceftriaxone and doxycycline. (2) Pulmonary embolism Current Visit: Yes Status: Acute Code(s): I26.99 - OTHER PULMONARY EMBOLISM WITHOUT ACUTE COR PULMONALE SNOMED Code(s): 08912564 Comment: - Elevated D-Dimer, Asymmetrical Leg swelling, Elevated Trop, Elevated BNP despite apparent hypovolemia all concerning for PE - VQ scan intermediate risk - Continue Full Strength Lovenox. (3) Pneumonia Current Visit: No Status: Acute Code(s): J18.9 - PNEUMONIA, UNSPECIFIED ORGANISM SNOMED Code(s): 860603799 Comment: - Infiltrate on CXR and CT - Bacteremia, likely lung source (Pending Speciation) - Continue Ceftriaxone and Doxycycline - Large Effusion, Previously present. - Likely Bacterial Superinfection on Influenza. - Continue steroids for adjunctive penumonia therapy. (4) Flu Current Visit: Yes Status: Acute Code(s): J11.1 - FLU DUE TO UNIDENTIFIED INFLUENZA VIRUS W OTH RESP MANIFEST SNOMED Code(s): 5428490 Comment: - Likely contributing to Respiratory symptoms - Continue Tamiflu (5) BEL (acute kidney injury) Current Visit: Yes Status: Acute Code(s): N17.9 - ACUTE KIDNEY FAILURE, UNSPECIFIED SNOMED Code(s): 85930537 Comment: - Cret to ~3 from 1.5 - Likely prerenal from poor oral intake in setting of Flu - No improvement with fluids and worsening of respiraotry status requiring lasix - Appears hypoveolemic, further clarity pending echo. (6) HFrEF (heart failure with reduced ejection fraction) Current Visit: Yes Status: Acute Code(s): I50.20 - UNSPECIFIED SYSTOLIC ( CONGESTIVE) HEART FAILURE SNOMED Code(s): 699532828 Comment: - Most recent EF 40-45% - Apparently Hypoveolemic, respiratory status worsened with fluids - Unclear cause, likely ischemic - Repeat Echo - Use fluids judiciously - Will need BB, ? ACEI/ARB at D/C. (7) Atrial fibrillation Current Visit: Yes Status: Acute Code(s): I48.91 - UNSPECIFIED ATRIAL FIBRILLATION SNOMED Code(s): 04411360 Comment: - New onset, unclear duration - Relatively good rate control without medications, likely being driven by acute illness - Anticoagulate with Lovenox - Echocardiogram pending (8) DVT prophylaxis Current Visit: No Status: Acute Code(s): WYZ9124 - SNOMED Code(s): 263477123 Comment: - Full Dose Lovenox renally dosed. (9) Full code status Current Visit: No Status: Acute Code(s): Z78.9 - OTHER SPECIFIED HEALTH STATUS SNOMED Code(s): 245543722 (10) History of bladder cancer Current Visit: No Status: Acute Code(s): Z85.51 - PERSONAL HISTORY OF MALIGNANT NEOPLASM OF BLADDER SNOMED Code(s): 920854648 Comment: - Urostomy in place without issues. - Supportive care (11) Hypertension Current Visit: No Status: Acute Code(s): I10 - ESSENTIAL (PRIMARY) HYPERTENSION SNOMED Code(s): 67321839 Comment: - Initially hypotensive, responded well with fluids - Not on home medications. Status and Disposition: Inpatient for respiratory distress.
[2019-10-03] MEDS: cefTRIAXone(*) 1 GM in NS 0.9% 50 ML* 50 ML IVPB SCH (19:47)
[2019-10-03] MEDS: Oseltamivir CAP* 30 MG CAP PO SCH (21:59)
[2019-10-04] MEDS ORDERED: Melatonin 3 MG TAB PO ONE (02:00)
[2019-10-04 04:57] LABS: Hematocrit 35 % (42-52); Hemoglobin 11.6 g/dL (14.0-18.0); Mean Corpuscular HGB Conc 33 g/dL (31-36); Mean Corpuscular Hemoglobin 30 pg (27-31); Mean Corpuscular Volume 92 fL (80-94); Mean Platelet Volume 10.3 fL (7.4-10.4); Platelet Count 94 10^3/uL (150-450); Red Blood Count 3.84 10^6 /uL (4.18-5.48); Red Cell Distribution Width 16 % (10-15); White Blood Count 8.3 10^3/uL (3.5-10.8)
[2019-10-04 05:04] LABS: BUN/Creatinine Ratio 38.4 (8-20); Calcium 7.8 mg/dL (8.6-10.3); EGFR African American 28.9 (>60); EGFR Non-African American 23.8 (>60)
[2019-10-04 05:08] LABS: Potassium 5.3 mmol/L (3.5-5.0)
[2019-10-04 05:26] LABS: ABS Lymphocytes 0.3 10^3/ul (1.0-4.8); ABS Monocytes 0.4 10^3/ul (0-0.8); ABS Neutrophils 7.6 10^3/ul (1.5-7.7); Lymphocyte % 3.7 %
[2019-10-04] MEDS: Enoxaparin(*) 100 MG/ML SYR SUBCUT SCH (08:36)
[2019-10-04] MEDS: methylPREDNISolone SOD 40 MG* 1 ML VIAL IV SCH (08:39)
[2019-10-04] MEDS: guaiFENesin ER TAB 600 MG PO SCH (08:40)
[2019-10-04] MEDS: DOXYcycline IV* 100 MG in NS 0.9% 250 ML* 250 ML IVPB SCH ×2 (08:42→22:01)
--- NOTE | 2019-10-04 16:19 | PN ---
Subjective Date of Service: 10/04/19 Interval History: reports feeling better.but reports that he is worried about multiple issues.still sob Family History: Unchanged from Admission Social History: Unchanged from Admission Past Medical History: Unchanged from Admission Objective Active Medications: Acetaminophen (Tylenol Tab*) 650 mg PO Q6H PRN PRN Reason: MILD PAIN or TEMP > 100.4 Last Admin: 10/03/19 22:10 Dose: 650 mg Albuterol/Ipratropium (Duoneb (Albuterol 2.5 Mg/Ipratropium 0.5 Mg)) 1 neb INH Q6H PRN PRN Reason: SOB/WHEEZING Benzonatate (Tessalon Cap*) 100 mg PO BID PRN PRN Reason: COUGH Last Admin: 10/01/19 20:32 Dose: 100 mg Enoxaparin Sodium (Lovenox(*)) 90 mg SUBCUT DAILY [facility] Last Admin: 10/04/19 08:36 Dose: 90 mg Doxycycline Hyclate 100 mg/ (Sodium Chloride) 250 mls @ 250 mls/hr IVPB Q12H [facility] Last Admin: 10/04/19 08:42 Dose: 250 mls/hr Ceftriaxone Sodium 1 gm/ (Sodium Chloride) 50 mls @ 200 mls/hr IVPB Q24H [facility] Last Admin: 10/03/19 19:47 Dose: 200 mls/hr Loperamide HCl (Imodium Cap*) 2 mg PO Q4H PRN PRN Reason: DIARRHEA Melatonin (Melatonin) 3 mg PO BEDTIME PRN PRN Reason: INSOMNIA Methylprednisolone Sodium Succinate (Solu-Medrol 40 Mg) 40 mg IV DAILY [facility] Last Admin: 10/04/19 08:39 Dose: 40 mg Ondansetron HCl (Zofran Inj*) 4 mg IV Q6H PRN PRN Reason: NAUSEA Oseltamivir Phosphate (Tamiflu Cap*) 30 mg PO BEDTIME [facility] Stop: 10/05/19 21:01 Last Admin: 10/03/19 21:59 Dose: 30 mg Vital Signs - 8 hr 10/04/19 10/04/19 11:18 15:15 Temperature 97.4 F 98.7 F Pulse Rate 64 63 Respiratory 20 20 Rate Blood Pressure 119/72 144/78 (mmHg) O2 Sat by Pulse 99 98 Oximetry Oxygen Devices in Use Now: OxyMask Eyes: No Scleral Icterus Ears/Nose/Mouth/Throat: NL Teeth, Lips, Gums Neck: NL Appearance and Movements; NL JVP Respiratory: Symmetrical Chest Expansion and Respiratory Effort Cardiovascular: NL Sounds; No Murmurs; No JVD Abdominal: NL Sounds; No Tenderness; No Distention Extremities: No Edema Neurological: Alert and Oriented x 3 Result Diagrams: 10/04/19 03:59 10/04/19 03:59 Microbiology and Other Data: Microbiology 10/01/19 17:35 Aerobic Blood Culture - Preliminary Blood Venous Anaerobic Blood Culture - Preliminary Klebsiella Pneumoniae 10/01/19 17:35 Aerobic Blood Culture - Preliminary Blood Venous Klebsiella Pneumoniae Anaerobic Blood Culture - Preliminary Klebsiella Pneumoniae 10/01/19 21:40 Legionella Urinary Antigen - Final Urine Negative Legionella Antigen Streptococcus pneumoniae Ag Screen - Final Negative S. pneumo Antigen Assess/Plan/Problems-Billing Assessment: Patient is an 84yo male with a PMH for HFrEF, Possible Pulmonary fibrosis, bladder cancer s/p ileoconduit, here with influenza, likely bacterial pneumonia , BEL and possible PE, stable on treatment. - Patient Problems (1) Bacteremia Current Visit: Yes Status: Acute Code(s): R78.81 - BACTEREMIA SNOMED Code( s): 7599647 Comment: - /4 bottles with GNRs. - Likely lung source, but also awaiting urine cultures - Continue Ceftriaxone and doxycycline. -Repeat blood cx tomorrow (2) Pulmonary embolism Current Visit: Yes Status: Acute Code(s): I26.99 - OTHER PULMONARY EMBOLISM WITHOUT ACUTE COR PULMONALE SNOMED Code(s): 10616776 Comment: - Elevated D-Dimer, Asymmetrical Leg swelling, Elevated Trop, Elevated BNP despite apparent hypovolemia all concerning for PE - VQ scan intermediate risk - Continue Full Strength Lovenox. (3) Pneumonia Current Visit: No Status: Acute Code(s): J18.9 - PNEUMONIA, UNSPECIFIED ORGANISM SNOMED Code(s): 897811054 Comment: - Infiltrate on CXR and CT - Bacteremia, likely lung source (Pending Speciation) - Continue Ceftriaxone and Doxycycline - Large Effusion, Previously present. - Likely Bacterial Superinfection on Influenza. - Continue steroids for adjunctive penumonia therapy. (4) Flu Current Visit: Yes Status: Acute Code(s): J11.1 - FLU DUE TO UNIDENTIFIED INFLUENZA VIRUS W OTH RESP MANIFEST SNOMED Code(s): 1331309 Comment: - Likely contributing to Respiratory symptoms - Continue Tamiflu (5) BEL (acute kidney injury) Current Visit: Yes Status: Acute Code(s): N17.9 - ACUTE KIDNEY FAILURE, UNSPECIFIED SNOMED Code(s): 15800773 Comment: - Cret to ~3 from 1.5 - Likely prerenal from poor oral intake in setting of Flu - No improvement with fluids and worsening of respiraotry status requiring lasix - Appears hypoveolemic, further clarity pending echo. (6) HFrEF (heart failure with reduced ejection fraction) Current Visit: Yes Status: Acute Code(s): I50.20 - UNSPECIFIED SYSTOLIC ( CONGESTIVE) HEART FAILURE SNOMED Code(s): 249099157 Comment: - Most recent EF 40-45% - Apparently Hypoveolemic, respiratory status worsened with fluids - Unclear cause, likely ischemic - Repeat Echo - Use fluids judiciously - Will need BB, ? ACEI/ARB at D/C. (7) Atrial fibrillation Current Visit: Yes Status: Acute Code(s): I48.91 - UNSPECIFIED ATRIAL FIBRILLATION SNOMED Code(s): 37746025 Comment: - New onset, unclear duration - Relatively good rate control without medications, likely being driven by acute illness - Anticoagulate with Lovenox - Echocardiogram pending (8) DVT prophylaxis Current Visit: No Status: Acute Code(s): BAT1129 - SNOMED Code(s): 548762713 Comment: - Full Dose Lovenox renally dosed. (9) Full code status Current Visit: No Status: Acute Code(s): Z78.9 - OTHER SPECIFIED HEALTH STATUS SNOMED Code(s): 624482606 (10) History of bladder cancer Current Visit: No Status: Acute Code(s): Z85.51 - PERSONAL HISTORY OF MALIGNANT NEOPLASM OF BLADDER SNOMED Code(s): 609473417 Comment: - Urostomy in place without issues. - Supportive care (11) Hypertension Current Visit: No Status: Acute Code(s): I10 - ESSENTIAL (PRIMARY) HYPERTENSION SNOMED Code(s): 40022425 Comment: - Initially hypotensive, responded well with fluids - Not on home medications. Status and Disposition: Inpatient for respiratory distress.
[2019-10-04] MEDS ORDERED: Patiromer POWDER* 8.4 GM PAK PO ONE (16:20)
[2019-10-04] MEDS: cefTRIAXone(*) 1 GM in NS 0.9% 50 ML* 50 ML IVPB SCH (20:10)
[2019-10-04] MEDS: Melatonin 3 MG TAB PO PRN (22:02)
[2019-10-04] MEDS: Benzonatate CAP* 100 MG PO PRN (22:02)
[2019-10-04] MEDS: Oseltamivir CAP* 30 MG CAP PO SCH (22:02)
[2019-10-05 06:32] LABS: Hematocrit 35 % (42-52); Hemoglobin 11.7 g/dL (14.0-18.0); Mean Corpuscular HGB Conc 34 g/dL (31-36); Mean Corpuscular Hemoglobin 31 pg (27-31); Mean Corpuscular Volume 91 fL (80-94); Mean Platelet Volume 9.9 fL (7.4-10.4); Platelet Count 93 10^3/uL (150-450); Red Blood Count 3.84 10^6 /uL (4.18-5.48); Red Cell Distribution Width 15 % (10-15); White Blood Count 6.8 10^3/uL (3.5-10.8)
[2019-10-05 06:44] LABS: BUN/Creatinine Ratio 38.5 (8-20); Calcium 7.9 mg/dL (8.6-10.3); EGFR African American 34.5 (>60); EGFR Non-African American 28.5 (>60)
[2019-10-05 07:41] LABS: ABS Lymphocytes 0.4 10^3/ul (1.0-4.8); ABS Monocytes 0.5 10^3/ul (0-0.8); ABS Neutrophils 5.8 10^3/ul (1.5-7.7); Lymphocyte % 6.3 %
[2019-10-05] MEDS: Enoxaparin(*) 100 MG/ML SYR SUBCUT SCH (09:41)
[2019-10-05] MEDS: methylPREDNISolone SOD 40 MG* 1 ML VIAL IV SCH (09:47)
[2019-10-05] MEDS: Acetaminophen TAB* 325 MG PO PRN (09:50)
[2019-10-05] MEDS: DOXYcycline IV* 100 MG in NS 0.9% 250 ML* 250 ML IVPB SCH (09:51)
--- NOTE | 2019-10-05 13:43 | PN ---
Subjective Date of Service: 10/05/19 Interval History: Sob slowly improving.c/o headache malaise Family History: Unchanged from Admission Social History: Unchanged from Admission Past Medical History: Unchanged from Admission Objective Active Medications: Acetaminophen (Tylenol Tab*) 650 mg PO Q6H PRN PRN Reason: MILD PAIN or TEMP > 100.4 Last Admin: 10/05/19 09:50 Dose: 650 mg Albuterol/Ipratropium (Duoneb (Albuterol 2.5 Mg/Ipratropium 0.5 Mg)) 1 neb INH Q6H PRN PRN Reason: SOB/WHEEZING Benzonatate (Tessalon Cap*) 100 mg PO BID PRN PRN Reason: COUGH Last Admin: 10/04/19 22:02 Dose: 100 mg Enoxaparin Sodium (Lovenox(*)) 90 mg SUBCUT DAILY [facility] Last Admin: 10/05/19 09:41 Dose: 90 mg Doxycycline Hyclate 100 mg/ (Sodium Chloride) 250 mls @ 250 mls/hr IVPB Q12H [facility] Last Admin: 10/05/19 09:51 Dose: 250 mls/hr Ceftriaxone Sodium 1 gm/ (Sodium Chloride) 50 mls @ 200 mls/hr IVPB Q24H [facility] Last Admin: 10/04/19 20:10 Dose: 200 mls/hr Loperamide HCl (Imodium Cap*) 2 mg PO Q4H PRN PRN Reason: DIARRHEA Melatonin (Melatonin) 3 mg PO BEDTIME PRN PRN Reason: INSOMNIA Last Admin: 10/04/19 22:02 Dose: 3 mg Methylprednisolone Sodium Succinate (Solu-Medrol 40 Mg) 40 mg IV DAILY [facility] Last Admin: 10/05/19 09:47 Dose: 40 mg Ondansetron HCl (Zofran Inj*) 4 mg IV Q6H PRN PRN Reason: NAUSEA Oseltamivir Phosphate (Tamiflu Cap*) 30 mg PO BEDTIME [facility] Stop: 10/05/19 21:01 Last Admin: 10/04/19 22:02 Dose: 30 mg Vital Signs - 8 hr 10/05/19 07:51 Temperature 97.3 F Pulse Rate 54 Respiratory 20 Rate Blood Pressure 145/70 (mmHg) O2 Sat by Pulse 99 Oximetry Oxygen Devices in Use Now: Nasal Cannula Eyes: No Scleral Icterus Ears/Nose/Mouth/Throat: NL Teeth, Lips, Gums Neck: NL Appearance and Movements; NL JVP Respiratory: Symmetrical Chest Expansion and Respiratory Effort Cardiovascular: NL Sounds; No Murmurs; No JVD Abdominal: NL Sounds; No Tenderness; No Distention Extremities: No Edema Neurological: Alert and Oriented x 3 Result Diagrams: 10/05/19 05:31 10/05/19 05:31 Microbiology and Other Data: Microbiology 10/01/19 17:35 Aerobic Blood Culture - Preliminary Blood Venous Anaerobic Blood Culture - Preliminary Klebsiella Pneumoniae 10/01/19 17:35 Aerobic Blood Culture - Preliminary Blood Venous Klebsiella Pneumoniae Anaerobic Blood Culture - Preliminary Klebsiella Pneumoniae 10/01/19 21:40 Legionella Urinary Antigen - Final Urine Negative Legionella Antigen Streptococcus pneumoniae Ag Screen - Final Negative S. pneumo Antigen Assess/Plan/Problems-Billing Assessment: Patient is an 84yo male with a PMH for HFrEF, Possible Pulmonary fibrosis, bladder cancer s/p ileoconduit, here with influenza, likely bacterial pneumonia , BEL and possible PE, stable on treatment. - Patient Problems (1) Bacteremia Current Visit: Yes Status: Acute Code(s): R78.81 - BACTEREMIA SNOMED Code( s): 4085145 Comment: - 4/4 bottles with GNRs, klebsiella sensitive to Ceftriaxone - Likely lung source, but also awaiting urine cultures - Continue Ceftriaxone and doxycycline. -Repeat blood cx ordered,pending (2) Pulmonary embolism Current Visit: Yes Status: Acute Code(s): I26.99 - OTHER PULMONARY EMBOLISM WITHOUT ACUTE COR PULMONALE SNOMED Code(s): 36002737 Comment: - Elevated D-Dimer, Asymmetrical Leg swelling, Elevated Trop, Elevated BNP despite apparent hypovolemia all concerning for PE - VQ scan intermediate risk - Continue Full Strength Lovenox -Can likely switch to PO anticoagulation over the weekend after discussion with patient. Cannot get CTA with his renal failure (3) Pneumonia Current Visit: No Status: Acute Code(s): J18.9 - PNEUMONIA, UNSPECIFIED ORGANISM SNOMED Code(s): 298163923 Comment: - Infiltrate on CXR and CT - Bacteremia - Continue Ceftriaxone and Doxycycline - Large Effusion, Previously present. - Likely Bacterial Superinfection on Influenza. - Continue steroids for adjunctive penumonia therapy. (4) Flu Current Visit: Yes Status: Acute Code(s): J11.1 - FLU DUE TO UNIDENTIFIED INFLUENZA VIRUS W OTH RESP MANIFEST SNOMED Code(s): 6015535 Comment: - Likely contributing to Respiratory symptoms - Continue Tamiflu -5 days total (5) BEL (acute kidney injury) Current Visit: Yes Status: Acute Code(s): N17.9 - ACUTE KIDNEY FAILURE, UNSPECIFIED SNOMED Code(s): 55903781 Comment: - Cret to ~3 from 2.2 - ATN in the setting of sepsis with improvement in recovery phase (6) HFrEF (heart failure with reduced ejection fraction) Current Visit: Yes Status: Acute Code(s): I50.20 - UNSPECIFIED SYSTOLIC ( CONGESTIVE) HEART FAILURE SNOMED Code(s): 322046590 Comment: - Most recent EF 40-45% - Apparently Hypoveolemic, respiratory status worsened with fluids - Unclear cause, likely ischemic - Echo with worsening EF 30% done in the ICU in the setting of acute illness - Use fluids judiciously - Will need BB, ? ACEI/ARB at D/C. (7) Atrial fibrillation Current Visit: Yes Status: Acute Code(s): I48.91 - UNSPECIFIED ATRIAL FIBRILLATION SNOMED Code(s): 22293493 Comment: - New onset, unclear duration - Relatively good rate control without medications, likely being driven by acute illness - Anticoagulate with Lovenox - Echocardiogram worsening EF,global hypokinesis (8) DVT prophylaxis Current Visit: No Status: Acute Code(s): IXQ3882 - SNOMED Code(s): 497033922 Comment: - Full Dose Lovenox renally dosed. (9) Full code status Current Visit: No Status: Acute Code(s): Z78.9 - OTHER SPECIFIED HEALTH STATUS SNOMED Code(s): 237506339 (10) History of bladder cancer Current Visit: No Status: Acute Code(s): Z85.51 - PERSONAL HISTORY OF MALIGNANT NEOPLASM OF BLADDER SNOMED Code(s): 010867250 Comment: - Urostomy in place without issues. - Supportive care (11) Hypertension Current Visit: No Status: Acute Code(s): I10 - ESSENTIAL (PRIMARY) HYPERTENSION SNOMED Code(s): 04034878 Comment: - Initially hypotensive, responded well with fluids - Not on home medications. Status and Disposition: Inpatient for respiratory distress. Wean oxytgen.Switch to PO anticoagulation as renal fx improves. Antibiotics and tamiflu. Possible d/c on Tuesday 2-3 days
[2019-10-05] MEDS: cefTRIAXone(*) 1 GM in NS 0.9% 50 ML* 50 ML IVPB SCH (21:07)
[2019-10-05] MEDS: DOXYcycline CAP(*) 100 MG PO SCH (21:07)
[2019-10-05] MEDS: Oseltamivir CAP* 30 MG CAP PO SCH (21:08)
[2019-10-05] MEDS: Benzonatate CAP* 100 MG PO PRN (21:31)
[2019-10-05] MEDS: Melatonin 3 MG TAB PO PRN (21:31)
[2019-10-06 07:05] LABS: Hematocrit 35 % (42-52); Hemoglobin 11.6 g/dL (14.0-18.0); Mean Corpuscular HGB Conc 33 g/dL (31-36); Mean Corpuscular Hemoglobin 30 pg (27-31); Mean Corpuscular Volume 92 fL (80-94); Mean Platelet Volume 9.6 fL (7.4-10.4); Platelet Count 104 10^3/uL (150-450); Red Blood Count 3.85 10^6 /uL (4.18-5.48); Red Cell Distribution Width 15 % (10-15); White Blood Count 7.5 10^3/uL (3.5-10.8)
[2019-10-06 07:17] LABS: BUN/Creatinine Ratio 37.9 (8-20); Calcium 8.1 mg/dL (8.6-10.3); EGFR African American 39.9 (>60); EGFR Non-African American 32.9 (>60)
[2019-10-06] MEDS: DOXYcycline CAP(*) 100 MG PO SCH ×2 (07:50→20:14)
[2019-10-06] MEDS: Enoxaparin(*) 100 MG/ML SYR SUBCUT SCH (07:51)
[2019-10-06] MEDS: methylPREDNISolone SOD 40 MG* 1 ML VIAL IV SCH (07:54)
[2019-10-06 08:40] LABS: ABS Eosinophils 0.1 10^3/ul (0-0.6); ABS Lymphocytes 0.6 10^3/ul (1.0-4.8); ABS Monocytes 0.5 10^3/ul (0-0.8); ABS Neutrophils 6.2 10^3/ul (1.5-7.7); Eosinophil % 0.9 %; Lymphocyte % 8.2 %
--- NOTE | 2019-10-06 08:58 | PN ---
Subjective Date of Service: 10/06/19 Interval History: Tells me it's hard to know how he is because he just woke up and he's trying to get oriented Sitting on edge of bed and has already eaten most of breakfast Family History: Unchanged from Admission Social History: Unchanged from Admission Past Medical History: Unchanged from Admission Objective Active Medications: Acetaminophen (Tylenol Tab*) 650 mg PO Q6H PRN PRN Reason: MILD PAIN or TEMP > 100.4 Last Admin: 10/05/19 09:50 Dose: 650 mg Albuterol/Ipratropium (Duoneb (Albuterol 2.5 Mg/Ipratropium 0.5 Mg)) 1 neb INH Q6H PRN PRN Reason: SOB/WHEEZING Atorvastatin Calcium (Lipitor*) 40 mg PO 1700 [facility] Benzonatate (Tessalon Cap*) 100 mg PO BID PRN PRN Reason: COUGH Last Admin: 10/05/19 21:31 Dose: 100 mg Doxycycline Hyclate (Vibramycin Cap(*)) 100 mg PO BID [facility] Last Admin: 10/06/19 07:50 Dose: 100 mg Enoxaparin Sodium (Lovenox(*)) 90 mg SUBCUT DAILY [facility] Last Admin: 10/06/19 07:51 Dose: 90 mg Ceftriaxone Sodium 1 gm/ (Sodium Chloride) 50 mls @ 200 mls/hr IVPB Q24H [facility] Last Admin: 10/05/19 21:07 Dose: 200 mls/hr Loperamide HCl (Imodium Cap*) 2 mg PO Q4H PRN PRN Reason: DIARRHEA Melatonin (Melatonin) 3 mg PO BEDTIME PRN PRN Reason: INSOMNIA Last Admin: 10/05/19 21:31 Dose: 3 mg Metoprolol Tartrate (Lopressor Tab*) 12.5 mg PO Q12HR [facility] Ondansetron HCl (Zofran Inj*) 4 mg IV Q6H PRN PRN Reason: NAUSEA Vital Signs - 8 hr 10/06/19 03:10 Temperature 97.6 F Pulse Rate 64 Respiratory 18 Rate Blood Pressure 129/56 (mmHg) O2 Sat by Pulse 95 Oximetry Oxygen Devices in Use Now: Nasal Cannula - 2L Appearance: sitting on edge of bed, NAD Eyes: No Scleral Icterus, PERRLA Ears/Nose/Mouth/Throat: NL Teeth, Lips, Gums, Clear Oropharnyx Neck: NL Appearance and Movements; NL JVP, Trachea Midline Respiratory: Symmetrical Chest Expansion and Respiratory Effort, - - rales greatest in left base, rhocnhi anteriorly Cardiovascular: - - irir Abdominal: NL Sounds; No Tenderness; No Distention, No Hepatosplenomegaly, - - ieleal conduit bag c/d/i Extremities: - - 1+ b/l edema LE Skin: No Rash or Ulcers Neurological: Alert and Oriented x 3, - - interactive Result Diagrams: 10/06/19 06:20 10/06/19 06:20 Microbiology and Other Data: Microbiology 10/01/19 17:35 Aerobic Blood Culture - Preliminary Blood Venous Anaerobic Blood Culture - Preliminary Klebsiella Pneumoniae 10/01/19 17:35 Aerobic Blood Culture - Preliminary Blood Venous Klebsiella Pneumoniae Anaerobic Blood Culture - Preliminary Klebsiella Pneumoniae 10/01/19 21:40 Legionella Urinary Antigen - Final Urine Negative Legionella Antigen Streptococcus pneumoniae Ag Screen - Final Negative S. pneumo Antigen Assess/Plan/Problems-Billing Assessment: Patient is an 84yo male with a PMH for HFrEF, Possible Pulmonary fibrosis, bladder cancer s/p ileoconduit, here with influenza, likely bacterial pneumonia , BEL new afib, pseudomonas bacteremia, and possible PE, stable on treatment. - Patient Problems (1) Flu Comment: - with acute hypoxic respiratory failure - Continue Tamiflu -5 days total (2) CHF (congestive heart failure) Code(s): I50.9 - HEART FAILURE, UNSPECIFIED Comment: h/o HfpEF newly depressed EF (25-30%) start toprol and statin (10/06) check lipids cardiology consult re: LHC and need for lifevest (3) BEL (acute kidney injury) Comment: - creatinine improving - ATN in the setting of sepsis with improvement in recovery phase (4) Atrial fibrillation Comment: - New onset, unclear duration. Possibily contributing to newly depressed EF - add metorpolol - Anticoagulate with Lovenox -will need conversion to PO soon - Echocardiogram worsening EF,global hypokinesis (5) Bacteremia Comment: - 4/4 bottles with GNRs, klebsiella sensitive to Ceftriaxone - Continue Ceftriaxone and doxycycline. -Repeat blood cx ordered w/ NGTD - E. coli in urine (6) DVT prophylaxis Comment: - Full Dose Lovenox renally dosed. (7) Pneumonia Comment: - Infiltrate on CXR and CT - Bacteremia - Continue Ceftriaxone and Doxycycline - Large Effusion, Previously present. - Likely Bacterial Superinfection on Influenza. - Continue steroids for adjunctive penumonia therapy. (8) Pulmonary embolism Comment: - Elevated D-Dimer, Asymmetrical Leg swelling, Elevated Trop, Elevated BNP despite apparent hypovolemia all concerning for PE - VQ scan intermediate risk - no DVT - Continue Full Strength Lovenox -Can likely switch to PO anticoagulation over the weekend after discussion with patient. Cannot get CTA with his renal failure Status and Disposition: Inpatient for respiratory distress. Wean oxygen.Switch to PO anticoagulation as renal fx improves. Antibiotics and tamiflu. Possible d/c on Tuesday 2-3 days
[2019-10-06] MEDS ORDERED: Metoprolol Tartrate TAB* 25 MG PO SCH (09:00)
--- NOTE | 2019-10-06 13:24 | CONS ---
CC: Dr. Timothy Ramirez, [facility] CARDIOLOGY CONSULTATION: DATE OF CONSULT: 10/02/19 INDICATION FOR CONSULTATION: Cardiomyopathy, atrial fibrillation. HISTORY OF PRESENT ILLNESS: The patient is an 84-year-old gentleman who resides at [facility] but has been having difficulty taking care of himself. The patient was admitted to the hospital with res piratory distress. He was diagnosed with both viral and bacterial pneumonia. He was noted to be in atrial fibrillation. This is a new diagnosis to him. His last EKG here at [facility] was in 2017. At that time, he was in normal sinus rhythm. Part of his workup here, he got an echocardiogram and echocardiogram showed an ejection fraction of 2 0% to 25%. The patient has been treated actively for his pneumonia. His shortness of breath and cou gh had slowly improved during his hospitalization. PAST MEDICAL HISTORY: Significant for mild LV dysfunction with an ejection fraction of 40% to 45%, b ladder cancer, pulmonary fibrosis, diverticulosis, hypertension, renal insufficiency. PAST SURGICAL HISTORY: None. OUTPATIENT MEDICATIONS: 1. Aspirin 81 mg a day. 2. Albuterol inhaler. 3. Loperamide 2 mg as needed. 4. Multivitamin a day. 5. Prednisone 10 mg a day. 6. Zinc tablets. Medications here at [facility] include: 1. Lovenox 90 mg daily. 2. Doxycycline 100 mg b.i.d. 3. Ceftriaxone 1 mg a day. He is not taking any steroids. ALLERGIES: CIPROFLOXACIN. FAMILY HISTORY: Mother of pancreatic cancer. Father of multiple myeloma. SOCIAL HISTORY: He lives alone. He lives at [facility]. He denies tobacco or alcohol use. He wa s previously employed at [employer]. He is not . REVIEW OF SYSTEMS: Difficult to assess. The patient denies any fevers or chills. He denies any jackson ge in weight. PHYSICAL EXAM: Height is 5 feet 11 inches, weight 211 pounds, temperature 97.1, heart rate is 96, bl ood pressure 146/51, respiratory rate is 20, oxygen saturation 95% on 1 L. Sclerae anicteric. Oroph arynx is pink without erythema. Carotids are 2+ without bruits. JVD is slightly elevated. Thyroid is normal. Cardiac Exam: S1, S2, tachycardic. No murmurs, rubs, or gallops. PMI is normal. Lungs have mild rhonchi. There is no rales on exam. There is no dullness to percussion. Abdomen is soft, nontender, nondistended with normoactive bowel sounds. Extremities show 1+ edema. He has 2+ pulses t hroughout. The patient is awake, alert, and oriented. He moves all 4 extremities equally. DIAGNOSTIC STUDIES/LAB DATA: Chemistries within normal limits. BUN 74, creatinine 1.95 which is sli ghtly above his baseline. Troponin level 0.42. CRP is 258. BNP is greater than 1300. AST and ALT are normal. White count 7.5, hemoglobin 11, hematocrit 35, platelet count 104. EKG shows atrial fibrillation, intraventricular conduction delay. Echocardiogram as described above. IMPRESSION AND PLAN: This is an 84-year-old gentleman who is admitted to the hospital with pneumonia both viral and bacterial pneumonia. He is being treated with antibiotics. The patient was noted to have an elevated BNP. An echocardiogram showed severely reduced LV systolic function with no significant valvular abnormalities. His PA systolic pressure is estimated at 41 mm Hg. This is an 84-year-old gentleman admitted to the hospital with pneumonia, he was found to be in atria l fibrillation. For now, my recommendation is to stay on medical therapy. The patient's heart rate control is less t khan optimal. His average heart rate is about 95 beats per minute. I am going to switch him to long a cting beta-guerline for heart control. The patient will stay on full dose Lovenox given his kidney fu nction; however, the patient should probably switch over to oral anticoagulants during this hospitali zation. The patient will be started on low dose MAULIK inhibitor, lisinopril 5 mg a day for his LV dysfunction. We will watch closely his kidney function. Given his elevated troponin levels and LV dysfunction, I think it is appropriate that the patient und ergo a stress test while he is here in the hospital, this will be scheduled for Tuesday. Further kath mmendations pending response to medications and stress test results. [id number]/[facility] #: [id number]
[2019-10-06] MEDS: Acetaminophen TAB* 325 MG PO PRN (14:24)
[2019-10-06] MEDS: Atorvastatin* 40 MG TAB PO SCH (16:12)
[2019-10-06] MEDS: cefTRIAXone(*) 1 GM in NS 0.9% 50 ML* 50 ML IVPB SCH (20:13)
[2019-10-06] MEDS: Metoprolol Succinate XL TAB* 25 MG PO SCH (20:14)
[2019-10-06] MEDS: guaiFENesin ER TAB 600 MG PO SCH (22:00)
[2019-10-07] MEDS: Albuterol/Ipratropium NEB.SOL* Albuterol 2.5 MG/Ipratropium 0.5 MG 3 ML INH PRN ×3 (04:04→17:14)
[2019-10-07 05:12] LABS: BUN/Creatinine Ratio 37.8 (8-20); EGFR African American 48.7 (>60); EGFR Non-African American 40.2 (>60); HDL Cholesterol 33.7 mg/dL; Potassium 4.7 mmol/L (3.5-5.0)
[2019-10-07] MEDS: Lisinopril TAB* 5 MG PO SCH (08:04)
[2019-10-07] MEDS: Metoprolol Succinate XL TAB* 25 MG PO SCH ×2 (08:04→20:29)
[2019-10-07] MEDS: guaiFENesin ER TAB 600 MG PO SCH ×2 (08:04→20:29)
[2019-10-07] MEDS: Enoxaparin(*) 100 MG/ML SYR SUBCUT SCH (08:04)
[2019-10-07] MEDS: DOXYcycline CAP(*) 100 MG PO SCH ×2 (08:04→20:29)
[2019-10-07] MEDS: Benzonatate CAP* 100 MG PO PRN (12:14)
[2019-10-07] MEDS: Atorvastatin* 40 MG TAB PO SCH (16:02)
--- NOTE | 2019-10-07 16:29 | PN ---
Subjective Date of Service: 10/07/19 Interval History: HD 7 on 10/07 Overnight; black tarry stool; stool OBT positive vitals: stable patient seen and examined at bedside. Patient doing inhalation treatment. Patient still has cough and feels tired. He denies chest pain, palpitation. Objective Active Medications: Acetaminophen (Tylenol Tab*) 650 mg PO Q6H PRN PRN Reason: MILD PAIN or TEMP > 100.4 Last Admin: 10/06/19 14:24 Dose: 650 mg Albuterol/Ipratropium (Duoneb (Albuterol 2.5 Mg/Ipratropium 0.5 Mg)) 1 neb INH Q6H PRN PRN Reason: SOB/WHEEZING Last Admin: 10/07/19 12:14 Dose: 1 neb Atorvastatin Calcium (Lipitor*) 40 mg PO 1700 [facility] Last Admin: 10/07/19 16:02 Dose: 40 mg Benzonatate (Tessalon Cap*) 100 mg PO BID PRN PRN Reason: COUGH Last Admin: 10/07/19 12:14 Dose: 100 mg Doxycycline Hyclate (Vibramycin Cap(*)) 100 mg PO BID [facility] Last Admin: 10/07/19 08:04 Dose: 100 mg Enoxaparin Sodium (Lovenox(*)) 90 mg SUBCUT DAILY [facility] Last Admin: 10/07/19 08:04 Dose: 90 mg Guaifenesin (Mucinex*) 600 mg PO BID [facility] Last Admin: 10/07/19 08:04 Dose: 600 mg Ceftriaxone Sodium 1 gm/ (Sodium Chloride) 50 mls @ 200 mls/hr IVPB Q24H [facility] Last Admin: 10/06/19 20:13 Dose: 200 mls/hr Lisinopril (Prinivil Tab*) 5 mg PO DAILY [facility] Last Admin: 10/07/19 08:04 Dose: 5 mg Loperamide HCl (Imodium Cap*) 2 mg PO Q4H PRN PRN Reason: DIARRHEA Melatonin (Melatonin) 3 mg PO BEDTIME PRN PRN Reason: INSOMNIA Last Admin: 10/05/19 21:31 Dose: 3 mg Metoprolol Succinate (Toprol Xl Tab*) 25 mg PO BID [facility] Last Admin: 10/07/19 08:04 Dose: 25 mg Ondansetron HCl (Zofran Inj*) 4 mg IV Q6H PRN PRN Reason: NAUSEA Vital Signs - 8 hr 10/07/19 10/07/19 11:15 15:15 Temperature 97.4 F 97.6 F Pulse Rate 89 86 Respiratory 20 17 Rate Blood Pressure 142/73 118/59 (mmHg) O2 Sat by Pulse 99 96 Oximetry Oxygen Devices in Use Now: Nasal Cannula Exam: Oxygen Devices in Use Now: Nasal Cannula - 1L Appearance: sitting on edge of bed, NAD Eyes: No Scleral Icterus, PERRLA Ears/Nose/Mouth/Throat: NL Teeth, Lips, Gums, Clear Oropharnyx Neck: NL Appearance and Movements; NL JVP, Trachea Midline Respiratory: Symmetrical Chest Expansion and Respiratory Effort, - - rales greatest in left base, rhocnhi anteriorly Cardiovascular: - - Irregular Abdominal: NL Sounds; No Tenderness; No Distention, No Hepatosplenomegaly, - - ieleal conduit bag c/d/i Extremities: - - 1+ b/l edema LE Skin: No Rash or Ulcers Neurological: Alert and Oriented x 3, - - interactive Result Diagrams: 10/06/19 06:20 10/07/19 04:37 Microbiology and Other Data: Microbiology 10/01/19 17:35 Aerobic Blood Culture - Preliminary Blood Venous Anaerobic Blood Culture - Preliminary Klebsiella Pneumoniae 10/01/19 17:35 Aerobic Blood Culture - Preliminary Blood Venous Klebsiella Pneumoniae Anaerobic Blood Culture - Preliminary Klebsiella Pneumoniae 10/01/19 21:40 Legionella Urinary Antigen - Final Urine Negative Legionella Antigen Streptococcus pneumoniae Ag Screen - Final Negative S. pneumo Antigen Assess/Plan/Problems-Billing Assessment: Patient is an 84yo male with a PMH for HFrEF, Possible Pulmonary fibrosis, bladder cancer s/p ileoconduit, here with influenza complicated by likely bacterial pneumonia, BEL, new afib,klebsiella bacteremia, and possible PE, stable on treatment. - Patient Problems (1) Flu Comment: - with acute hypoxic respiratory failure - Completed 5 days course of tamiflu (2) Pneumonia Comment: - Infiltrate on CXR and CT - Bacteremia-klebsiella - Continue Ceftriaxone and Doxycycline(10/01) - Large Effusion, Previously present. - Likely Bacterial Superinfection on Influenza. - Completed steroid course for adjunctive pneumonia therapy. (3) Atrial fibrillation Comment: - New onset, unclear duration. Possibily contributing to newly depressed EF - On metoprolol 25 BID - Anticoagulate with Lovenox; high risk chadsvasc score -will need conversion to PO- likely eliquis-dose adjusted - Echocardiogram worsening EF of 25-30% ,global hypokinesis (4) HFrEF (heart failure with reduced ejection fraction) Current Visit: Yes Status: Acute Code(s): I50.20 - UNSPECIFIED SYSTOLIC ( CONGESTIVE) HEART FAILURE SNOMED Code(s): 930377401 Comment: - EF reduced to 25% from 40% with severly reduced LV function - elevated BNP On medical therapy-BB, lisinopril -beenaley ischemic- stress test tomorrow -could also be from atrial-fibrillation -On lovenox treatment dose -watch for kidney function (5) Pulmonary embolism Comment: - Elevated D-Dimer, Asymmetrical Leg swelling, Elevated Trop, Elevated BNP despite apparent hypovolemia all concerning for PE - VQ scan intermediate risk - no DVT - Continue Full Strength Lovenox -Can likely switch to PO anticoagulation after discussion with patient. Cannot get CTA with his renal failure (6) DVT prophylaxis Comment: - Full Dose Lovenox renally dosed. (7) Full code status Current Visit: No Status: Acute Code(s): Z78.9 - OTHER SPECIFIED HEALTH STATUS SNOMED Code(s): 844237488 Status and Disposition: Inpatient for respiratory distress. Wean oxygen.Switch to PO anticoagulation as renal fx improves. Antibiotics and tamiflu stress test tomorrow interested in [facility] Attending: Jeevan Noyola Attestation Documenting Resident: Guadalupe Ellison Supervising Physician: Jeevan Noyola Attending/Supervising Physician Comment: Agree with plan as outlined in note from Dr. Ellison unless indicated here. 84 M pw resp failure in setting of flu and suspected bacterial PNA found with new afib and decreased EF resp failure - in setting of flu and suspected bacterial PNA on abx and tamiflu now improving. Doubt PE. Afib - improved rate control on beta guerline CHF - not decompensated. Newly depressed. Plan stress test tomorrow. Attestation: This service has been performed in part by a resident under the direction of a teaching physician.I, Jeevan Noyola, performed the service, or was physically present during the critical, or ag portions of the service, furnished by the resident. I participated in the management of the patient.
[2019-10-07] MEDS: cefTRIAXone(*) 1 GM in NS 0.9% 50 ML* 50 ML IVPB SCH (20:28)
[2019-10-08] MEDS: Albuterol/Ipratropium NEB.SOL* Albuterol 2.5 MG/Ipratropium 0.5 MG 3 ML INH PRN (01:28)
[2019-10-08 06:18] LABS: BUN/Creatinine Ratio 31.1 (8-20); EGFR African American 47.7 (>60); EGFR Non-African American 39.4 (>60); Magnesium 1.7 mg/dL (1.9-2.7); Potassium 4.7 mmol/L (3.5-5.0)
[2019-10-08] MEDS: Enoxaparin(*) 100 MG/ML SYR SUBCUT SCH (08:43)
[2019-10-08] MEDS: Lisinopril TAB* 5 MG PO SCH (10:27)
[2019-10-08] MEDS: DOXYcycline CAP(*) 100 MG PO SCH ×2 (10:27→21:17)
[2019-10-08] MEDS: guaiFENesin ER TAB 600 MG PO SCH ×2 (10:27→21:17)
[2019-10-08] MEDS: Metoprolol Succinate XL TAB* 25 MG PO SCH ×2 (12:26→21:17)
[2019-10-08] MEDS: Acetaminophen TAB* 325 MG PO PRN (15:45)
[2019-10-08] MEDS: Atorvastatin* 40 MG TAB PO SCH (15:45)
[2019-10-08] MEDS: Magnesium Oxide TAB* 400 MG PO SCH (16:23)
--- NOTE | 2019-10-08 17:20 | PN ---
Subjective Date of Service: 10/08/19 Interval History: Patient complained of thirst this morning. He had good amount of urine outpt and weight is downtrending. He is still on InO2 2L Objective Active Medications: Acetaminophen (Tylenol Tab*) 650 mg PO Q6H PRN PRN Reason: MILD PAIN or TEMP > 100.4 Last Admin: 10/08/19 15:45 Dose: 650 mg Albuterol/Ipratropium (Duoneb (Albuterol 2.5 Mg/Ipratropium 0.5 Mg)) 1 neb INH Q6H PRN PRN Reason: SOB/WHEEZING Last Admin: 10/08/19 01:28 Dose: 1 neb Atorvastatin Calcium (Lipitor*) 40 mg PO 1700 [facility] Last Admin: 10/08/19 15:45 Dose: 40 mg Benzonatate (Tessalon Cap*) 100 mg PO BID PRN PRN Reason: COUGH Last Admin: 10/07/19 12:14 Dose: 100 mg Doxycycline Hyclate (Vibramycin Cap(*)) 100 mg PO BID [facility] Stop: 10/10/19 20:59 Last Admin: 10/08/19 10:27 Dose: 100 mg Enoxaparin Sodium (Lovenox(*)) 90 mg SUBCUT DAILY [facility] Last Admin: 10/08/19 08:43 Dose: 90 mg Guaifenesin (Mucinex*) 600 mg PO BID [facility] Last Admin: 10/08/19 10:27 Dose: 600 mg Lisinopril (Prinivil Tab*) 5 mg PO DAILY [facility] Last Admin: 10/08/19 10:27 Dose: 5 mg Loperamide HCl (Imodium Cap*) 2 mg PO Q4H PRN PRN Reason: DIARRHEA Magnesium Oxide (Magox 400 Tab*) 400 mg PO DAILY@1200 [facility] Stop: 10/11/19 16:29 Last Admin: 10/08/19 16:23 Dose: 400 mg Melatonin (Melatonin) 3 mg PO BEDTIME PRN PRN Reason: INSOMNIA Last Admin: 10/05/19 21:31 Dose: 3 mg Metoprolol Succinate (Toprol Xl Tab*) 25 mg PO BID [facility] Last Admin: 10/08/19 12:26 Dose: 25 mg Ondansetron HCl (Zofran Inj*) 4 mg IV Q6H PRN PRN Reason: NAUSEA Vital Signs - 8 hr 10/08/19 10/08/19 11:11 15:15 Temperature 97.4 F 96.8 F Pulse Rate 94 56 Respiratory 20 20 Rate Blood Pressure 130/56 127/54 (mmHg) O2 Sat by Pulse 100 100 Oximetry Oxygen Devices in Use Now: Nasal Cannula Exam: Oxygen Devices in Use Now: Nasal Cannula - 2L Appearance: sitting on recliner, NAD Eyes: No Scleral Icterus, PERRLA Ears/Nose/Mouth/Throat: NL Teeth, Lips, Gums, Clear Oropharnyx Neck: NL Appearance and Movements; NL JVP, Trachea Midline Respiratory: Symmetrical Chest Expansion and Respiratory Effort, rales heard bilateral bases, rhocnhi heard throughout the lung Cardiovascular: - - Irregular, rate controlled Abdominal: NL Sounds; No Tenderness; No Distention, No Hepatosplenomegaly, - - ileal conduit bag c/d/i Extremities: - - 1+ b/l edema LE Skin: No Rash or Ulcers Neurological: Alert and Oriented x 3, - - interactive Result Diagrams: 10/09/19 06:18 10/09/19 06:19 Microbiology and Other Data: Microbiology 10/01/19 17:35 Aerobic Blood Culture - Preliminary Blood Venous Anaerobic Blood Culture - Preliminary Klebsiella Pneumoniae 10/01/19 17:35 Aerobic Blood Culture - Preliminary Blood Venous Klebsiella Pneumoniae Anaerobic Blood Culture - Preliminary Klebsiella Pneumoniae 10/01/19 21:40 Legionella Urinary Antigen - Final Urine Negative Legionella Antigen Streptococcus pneumoniae Ag Screen - Final Negative S. pneumo Antigen Assess/Plan/Problems-Billing Assessment: Patient is an 84yo male with a PMH for HFrEF, Possible Pulmonary fibrosis, bladder cancer s/p ileoconduit, here with influenza complicated by bacterial pneumonia, BEL, klebsiella bacteremia,which are resolving. His course complicated by new AF, HFrEF with new EF drop from 40% to 25%, and possible PE. - Patient Problems (1) Flu Comment: - with acute hypoxic respiratory failure - Completed 5 days course of tamiflu (2) Atrial fibrillation Comment: - New onset, unclear duration. Possibily contributing to newly depressed EF - On metoprolol 25 BID - Anticoagulate with Lovenox; high risk chadsvasc score - will need conversion to PO- likely eliquis-dose adjuste - keep Lovenox now due to tarry stool, continue to watch, Hb stable - Echocardiogram worsening EF of 25-30% ,global hypokinesis (3) Bacteremia Current Visit: Yes Status: Acute Code(s): R78.81 - BACTEREMIA SNOMED Code( s): 6778418 Comment: - 4/4 bottles with GNRs, klebsiella sensitive to Ceftriaxone - Completed Ceftriaxone 7 days, will need doxycycline 5 days in total. - Repeat blood cx ordered w/ NGTD - E. coli in urine (4) HFrEF (heart failure with reduced ejection fraction) Current Visit: Yes Status: Acute Code(s): I50.20 - UNSPECIFIED SYSTOLIC ( CONGESTIVE) HEART FAILURE SNOMED Code(s): 968531049 Comment: - EF reduced to 25% from 40% with severly reduced LV function - elevated BNP On medical therapy-BB, lisinopril -likley ischemic- stress test tomorrow -could also be from atrial-fibrillation -On lovenox treatment dose -watch for kidney function (5) Pneumonia Comment: - Infiltrate on CXR and CT - Bacteremia-klebsiella - Continue Ceftriaxone and Doxycycline(10/01) - Large Effusion, Previously present. - Likely Bacterial Superinfection on Influenza. - Completed steroid course for adjunctive pneumonia therapy. (6) Pulmonary embolism Comment: - Elevated D-Dimer, Asymmetrical Leg swelling, Elevated Trop, Elevated BNP despite apparent hypovolemia all concerning for PE - VQ scan intermediate risk - no DVT - Continue Full Strength Lovenox - Can likely switch to PO anticoagulation once melena stopped. Cannot get CTA with his renal failure (7) History of bladder cancer Current Visit: No Status: Acute Code(s): Z85.51 - PERSONAL HISTORY OF MALIGNANT NEOPLASM OF BLADDER SNOMED Code(s): 510017415 Comment: - Urostomy in place without issues. - Supportive care (8) DVT prophylaxis Comment: - Full Dose Lovenox renally dosed. Status and Disposition: Inpatient. Wean oxygen. stress test tomorrow May go to [facility] Attestation Documenting Resident: Rekha Wen Supervising Physician: Jeevan Noyola Attending/Supervising Physician Comment: Agree with plan as outline din note from today Stress test tomorrow Attestation: This service has been performed in part by a resident under the direction of a teaching physician.I, Jeevan Noyola, performed the service, or was physically present during the critical, or ag portions of the service, furnished by the resident. I participated in the management of the patient.
[2019-10-09 06:50] LABS: Hematocrit 32 % (42-52); Hemoglobin 10.8 g/dL (14.0-18.0); Mean Corpuscular HGB Conc 34 g/dL (31-36); Mean Corpuscular Hemoglobin 31 pg (27-31); Mean Corpuscular Volume 91 fL (80-94); Mean Platelet Volume 9.3 fL (7.4-10.4); Platelet Count 186 10^3/uL (150-450); Red Blood Count 3.48 10^6 /uL (4.18-5.48); Red Cell Distribution Width 15 % (10-15); White Blood Count 10.9 10^3/uL (3.5-10.8)
[2019-10-09 07:03] LABS: BUN/Creatinine Ratio 29.4 (8-20); Calcium 7.7 mg/dL (8.6-10.3); EGFR African American 60.4 (>60); EGFR Non-African American 49.9 (>60); Potassium 4.4 mmol/L (3.5-5.0)
[2019-10-09 07:27] LABS: ABS Eosinophils 0.3 10^3/ul (0-0.6); ABS Lymphocytes 0.7 10^3/ul (1.0-4.8); ABS Monocytes 0.4 10^3/ul (0-0.8); ABS Neutrophils 9.5 10^3/ul (1.5-7.7); Eosinophil % 2.3 %; Lymphocyte % 6.6 %
[2019-10-09] MEDS: Metoprolol Succinate XL TAB* 25 MG PO SCH ×2 (11:48→20:28)
[2019-10-09] MEDS: guaiFENesin ER TAB 600 MG PO SCH ×2 (11:48→20:28)
[2019-10-09] MEDS: Magnesium Oxide TAB* 400 MG PO SCH (11:49)
[2019-10-09] MEDS: Lisinopril TAB* 5 MG PO SCH (11:49)
[2019-10-09] MEDS: DOXYcycline CAP(*) 100 MG PO SCH ×2 (11:49→20:28)
[2019-10-09] MEDS: cefTRIAXone(*) 1 GM in NS 0.9% 50 ML* 50 ML IVPB SCH (11:50)
[2019-10-09] MEDS: Enoxaparin(*) 100 MG/ML SYR SUBCUT SCH ×2 (11:50→20:29)
[2019-10-09] MEDS ORDERED: Regadenoson* 0.4 MG/5 ML SYRINGE ONE (12:54)
[2019-10-09] MEDS: Atorvastatin* 40 MG TAB PO SCH (17:43)
[2019-10-09] MEDS: Acetaminophen TAB* 325 MG PO PRN ×2 (17:46→23:46)
--- NOTE | 2019-10-09 18:06 | PN ---
Subjective Date of Service: 10/09/19 Interval History: Patient stated he felt "crappy" and "not good" today. He denied any chest pain, difficulty breathing, palpitation. He denied fever or chills. He had concerns about his clothes and his car when he went to [facility]. I explained to him about [facility] in detail. Objective Active Medications: Acetaminophen (Tylenol Tab*) 650 mg PO Q6H PRN PRN Reason: MILD PAIN or TEMP > 100.4 Last Admin: 10/09/19 17:46 Dose: 650 mg Albuterol/Ipratropium (Duoneb (Albuterol 2.5 Mg/Ipratropium 0.5 Mg)) 1 neb INH Q6H PRN PRN Reason: SOB/WHEEZING Last Admin: 10/08/19 01:28 Dose: 1 neb Atorvastatin Calcium (Lipitor*) 40 mg PO 1700 [facility] Last Admin: 10/09/19 17:43 Dose: 40 mg Benzonatate (Tessalon Cap*) 100 mg PO BID PRN PRN Reason: COUGH Last Admin: 10/07/19 12:14 Dose: 100 mg Doxycycline Hyclate (Vibramycin Cap(*)) 100 mg PO BID [facility] Stop: 10/10/19 20:59 Last Admin: 10/09/19 11:49 Dose: 100 mg Enoxaparin Sodium (Lovenox(*)) 90 mg SUBCUT BID [facility] Guaifenesin (Mucinex*) 600 mg PO BID [facility] Last Admin: 10/09/19 11:48 Dose: 600 mg Ceftriaxone Sodium 1 gm/ (Sodium Chloride) 50 mls @ 100 mls/hr IVPB Q24H [facility] Last Admin: 10/09/19 11:50 Dose: 100 mls/hr Lisinopril (Prinivil Tab*) 5 mg PO DAILY [facility] Last Admin: 10/09/19 11:49 Dose: 5 mg Loperamide HCl (Imodium Cap*) 2 mg PO Q4H PRN PRN Reason: DIARRHEA Magnesium Oxide (Magox 400 Tab*) 400 mg PO DAILY@1200 [facility] Stop: 10/11/19 16:29 Last Admin: 10/09/19 11:49 Dose: 400 mg Melatonin (Melatonin) 3 mg PO BEDTIME PRN PRN Reason: INSOMNIA Last Admin: 10/05/19 21:31 Dose: 3 mg Metoprolol Succinate (Toprol Xl Tab*) 25 mg PO BID [facility] Last Admin: 10/09/19 11:48 Dose: 25 mg Ondansetron HCl (Zofran Inj*) 4 mg IV Q6H PRN PRN Reason: NAUSEA Vital Signs - 8 hr 10/09/19 10/09/19 11:02 15:15 Temperature 97.5 F 97.1 F Pulse Rate 95 88 Respiratory 24 22 Rate Blood Pressure 112/54 145/82 (mmHg) O2 Sat by Pulse 96 95 Oximetry Oxygen Devices in Use Now: Nasal Cannula Exam: Oxygen Devices in Use Now: Nasal Cannula - 2L Appearance: sitting on recliner, NAD Eyes: No Scleral Icterus, PERRLA Ears/Nose/Mouth/Throat: NL Teeth, Lips, Gums, Clear Oropharnyx Neck: NL Appearance and Movements; NL JVP, Trachea Midline Respiratory: Symmetrical Chest Expansion and Respiratory Effort, right basal decreased air entry, left lung clear Cardiovascular: - - Irregular, rate controlled Abdominal: NL Sounds; No Tenderness; No Distention, No Hepatosplenomegaly, ileal conduit bag c/d/i Extremities: - - no edema Skin: No Rash or Ulcers Neurological: Alert and Oriented x 3, interactive Result Diagrams: 10/09/19 06:18 10/09/19 06:19 Microbiology and Other Data: Microbiology 10/01/19 17:35 Aerobic Blood Culture - Preliminary Blood Venous Anaerobic Blood Culture - Preliminary Klebsiella Pneumoniae 10/01/19 17:35 Aerobic Blood Culture - Preliminary Blood Venous Klebsiella Pneumoniae Anaerobic Blood Culture - Preliminary Klebsiella Pneumoniae 10/01/19 21:40 Legionella Urinary Antigen - Final Urine Negative Legionella Antigen Streptococcus pneumoniae Ag Screen - Final Negative S. pneumo Antigen Assess/Plan/Problems-Billing Assessment: Patient is an 84yo male with a PMH for HFrEF, Possible Pulmonary fibrosis, bladder cancer s/p ileoconduit, here with influenza complicated by bacterial pneumonia, BEL, klebsiella bacteremia,which are resolving. His course complicated by new AF, HFrEF with new EF drop , and possible PE. - Patient Problems (1) Flu Comment: - with acute hypoxic respiratory failure - Completed 5 days course of tamiflu (2) Atrial fibrillation Comment: - New onset, unclear duration. Possibily contributing to newly depressed EF - On metoprolol 25 BID - Anticoagulate with Lovenox; high risk chadsvasc score - will need conversion to PO- likely eliquis-dose adjuste - keep Lovenox now due to tarry stool, continue to watch, Hb stable - Echocardiogram worsening EF of 25-30% ,global hypokinesis (3) Bacteremia Current Visit: Yes Status: Acute Code(s): R78.81 - BACTEREMIA SNOMED Code( s): 5213153 Comment: - 4/4 bottles with GNRs, klebsiella sensitive to Ceftriaxone - Completed Ceftriaxone 7 days, will need doxycycline 5 days in total. - Repeat blood cx ordered w/ NGTD - E. coli in urine (4) HFrEF (heart failure with reduced ejection fraction) Current Visit: Yes Status: Acute Code(s): I50.20 - UNSPECIFIED SYSTOLIC ( CONGESTIVE) HEART FAILURE SNOMED Code(s): 638265877 Comment: - EF reduced to 25% from 40% with severly reduced LV function - On medical therapy-BB, lisinopril - stress test today showing high risk - talked to Dr. 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 - Likely Bacterial Superinfection on Influenza. - Completed steroid course for adjunctive pneumonia therapy. (6) Pulmonary embolism Comment: - Elevated D-Dimer, Asymmetrical Leg swelling, Elevated Trop, Elevated BNP despite apparent hypovolemia all concerning for PE - VQ scan intermediate risk - no DVT - Continue Full Strength Lovenox - no more melena for today, consider switching to oral anticogulant. Cannot get CTA with his renal failure (7) History of bladder cancer Current Visit: No Status: Acute Code(s): Z85.51 - PERSONAL HISTORY OF MALIGNANT NEOPLASM OF BLADDER SNOMED Code(s): 102798256 Comment: - Urostomy in place without issues. - Supportive care (8) DVT prophylaxis Comment: - incrased his dose of Lovenox based on his current renal function Status and Disposition: Inpatient. Wean oxygen May go to [facility] Attestation Documenting Resident: Rekha Wen Supervising Physician: Jeevan Noyola Attending/Supervising Physician Comment: Agree with plan as outlined in note from today unless indicate here Discussed with cardiology. They strongly disagree with radiology interpretation of stress test and feel there is a very small area of ischemia that would not benefit from intervention. Plan on medical management. They also do not see benefit for lifevest. Plan will be to control afib rate with plan for cardioversion in future and repeat TTE. Doubt PE in setting of other contributing factors to respiratory distress including CHF, PNA and flu. Attestation: This service has been performed in part by a resident under the direction of a teaching physician.I, Jeevan Noyola, performed the service, or was physically present during the critical, or ag portions of the service, furnished by the resident. I participated in the management of the patient.
[2019-10-10] MEDS: DOXYcycline CAP(*) 100 MG PO SCH (09:02)
[2019-10-10] MEDS: Metoprolol Succinate XL TAB* 25 MG PO SCH ×2 (09:02→20:50)
[2019-10-10] MEDS: guaiFENesin ER TAB 600 MG PO SCH ×2 (09:02→20:50)
[2019-10-10] MEDS: Enoxaparin(*) 100 MG/ML SYR SUBCUT SCH (09:03)
[2019-10-10] MEDS: Lisinopril TAB* 5 MG PO SCH (09:03)
[2019-10-10] MEDS: cefTRIAXone(*) 1 GM in NS 0.9% 50 ML* 50 ML IVPB SCH (11:22)
[2019-10-10] MEDS: Magnesium Oxide TAB* 400 MG PO SCH (11:25)
[2019-10-10 13:19] LABS: Hematocrit 32 % (42-52); Hemoglobin 10.6 g/dL (14.0-18.0); Mean Corpuscular HGB Conc 33 g/dL (31-36); Mean Corpuscular Hemoglobin 30 pg (27-31); Mean Corpuscular Volume 92 fL (80-94); Platelet Count 211 10^3/uL (150-450); Red Cell Distribution Width 15 % (10-15); White Blood Count 10.4 10^3/uL (3.5-10.8)
[2019-10-10 14:13] LABS: ABS Eosinophils 0.2 10^3/ul (0-0.6); ABS Lymphocytes 0.5 10^3/ul (1.0-4.8); ABS Monocytes 0.4 10^3/ul (0-0.8); ABS Neutrophils 9.2 10^3/ul (1.5-7.7); Eosinophil % 2.1 %; Lymphocyte % 5.2 %
[2019-10-10 14:15] LABS: Polychromasia 1+
--- NOTE | 2019-10-10 15:07 | PN ---
Subjective Date of Service: 10/10/19 Interval History: Patient felt better today, managed to wean off O2. Still had some cough, status quo. His stool was dark the day before, it turned light brown today. No dizziness or light headedness. Objective Active Medications: Acetaminophen (Tylenol Tab*) 650 mg PO Q6H PRN PRN Reason: MILD PAIN or TEMP > 100.4 Last Admin: 10/09/19 23:46 Dose: 650 mg Albuterol/Ipratropium (Duoneb (Albuterol 2.5 Mg/Ipratropium 0.5 Mg)) 1 neb INH Q6H PRN PRN Reason: SOB/WHEEZING Last Admin: 10/08/19 01:28 Dose: 1 neb Atorvastatin Calcium (Lipitor*) 40 mg PO 1700 [facility] Last Admin: 10/09/19 17:43 Dose: 40 mg Benzonatate (Tessalon Cap*) 100 mg PO BID PRN PRN Reason: COUGH Last Admin: 10/07/19 12:14 Dose: 100 mg Doxycycline Hyclate (Vibramycin Cap(*)) 100 mg PO BID [facility] Stop: 10/10/19 20:59 Last Admin: 10/10/19 09:02 Dose: 100 mg Enoxaparin Sodium (Lovenox(*)) 90 mg SUBCUT BID [facility] Last Admin: 10/10/19 09:03 Dose: 90 mg Guaifenesin (Mucinex*) 600 mg PO BID [facility] Last Admin: 10/10/19 09:02 Dose: 600 mg Ceftriaxone Sodium 1 gm/ (Sodium Chloride) 50 mls @ 100 mls/hr IVPB Q24H [facility] Last Admin: 10/10/19 11:22 Dose: 100 mls/hr Lisinopril (Prinivil Tab*) 5 mg PO DAILY [facility] Last Admin: 10/10/19 09:03 Dose: 5 mg Loperamide HCl (Imodium Cap*) 2 mg PO Q4H PRN PRN Reason: DIARRHEA Magnesium Oxide (Magox 400 Tab*) 400 mg PO DAILY@1200 [facility] Stop: 10/11/19 16:29 Last Admin: 10/10/19 11:25 Dose: 400 mg Melatonin (Melatonin) 3 mg PO BEDTIME PRN PRN Reason: INSOMNIA Last Admin: 10/05/19 21:31 Dose: 3 mg Metoprolol Succinate (Toprol Xl Tab*) 25 mg PO BID [facility] Last Admin: 10/10/19 09:02 Dose: 25 mg Ondansetron HCl (Zofran Inj*) 4 mg IV Q6H PRN PRN Reason: NAUSEA Vital Signs - 8 hr 10/10/19 10/10/19 10/10/19 08:01 08:10 08:15 Temperature 97.1 F Pulse Rate 85 Respiratory 20 18 Rate Blood Pressure 131/77 (mmHg) O2 Sat by Pulse 98 83 Oximetry 10/10/19 12:17 Temperature 97.7 F Pulse Rate 85 Respiratory 24 Rate Blood Pressure 132/63 (mmHg) O2 Sat by Pulse 95 Oximetry Oxygen Devices in Use Now: Nasal Cannula Exam: Appearance: sitting on recliner, NAD Eyes: No Scleral Icterus, PERRLA Ears/Nose/Mouth/Throat: NL Teeth, Lips, Gums, Clear Oropharnyx Neck: NL Appearance and Movements; NL JVP, Trachea Midline Respiratory: Symmetrical Chest Expansion and Respiratory Effort, right basal decreased air entry, left lung clear Cardiovascular: - - Irregular, rate controlled Abdominal: NL Sounds; No Tenderness; No Distention, No Hepatosplenomegaly, ileal conduit bag c/d/i Extremities: no edema Skin: No Rash or Ulcers Neurological: Alert and Oriented x 3, interactive Result Diagrams: 10/10/19 13:10 10/09/19 06:19 Microbiology and Other Data: Microbiology 10/01/19 17:35 Aerobic Blood Culture - Preliminary Blood Venous Anaerobic Blood Culture - Preliminary Klebsiella Pneumoniae 10/01/19 17:35 Aerobic Blood Culture - Preliminary Blood Venous Klebsiella Pneumoniae Anaerobic Blood Culture - Preliminary Klebsiella Pneumoniae 10/01/19 21:40 Legionella Urinary Antigen - Final Urine Negative Legionella Antigen Streptococcus pneumoniae Ag Screen - Final Negative S. pneumo Antigen Assess/Plan/Problems-Billing Assessment: Patient is an 84yo male with a PMH for HFrEF, Possible Pulmonary fibrosis, bladder cancer s/p ileoconduit, here with influenza complicated by bacterial pneumonia, BEL, klebsiella bacteremia,which are resolving. His course complicated by new AF, HFrEF with new EF drop , and possible PE. - Patient Problems (1) Flu Comment: - with acute hypoxic respiratory failure - Completed 5 days course of tamiflu (2) Atrial fibrillation Comment: - New onset, unclear duration. Possibily contributing to newly depressed EF - On metoprolol 25 BID - Echocardiogram worsening EF of 25-30% ,global hypokinesis - Anticoagulate with Lovenox; high risk chadsvasc score - convert to eliquis today (3) Bacteremia Current Visit: Yes Status: Acute Code(s): R78.81 - BACTEREMIA SNOMED Code( s): 8970700 Comment: - 4/ bottles with GNRs, klebsiella sensitive to Ceftriaxone - Need abx 14 days in total (iv ceftriaxone currently) , will need doxycycline 5 days in total. - Repeat blood cx ordered w/ NGTD - E. coli in urine (4) HFrEF (heart failure with reduced ejection fraction) Current Visit: Yes Status: Acute Code(s): I50.20 - UNSPECIFIED SYSTOLIC ( CONGESTIVE) HEART FAILURE SNOMED Code(s): 528165932 Comment: - EF reduced to 25% from 40% with severly reduced LV function - On medical therapy-BB, lisinopril - stress test showing high risk, talked to Dr. 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 - Likely Bacterial Superinfection on Influenza. - Completed steroid course for adjunctive pneumonia therapy. (6) Pulmonary embolism Comment: - Elevated D-Dimer, Asymmetrical Leg swelling, Elevated Trop, Elevated BNP despite apparent hypovolemia all concerning for PE - VQ scan intermediate risk - no DVT - Continue Full Strength Lovenox - no more melena for today, consider switching to oral anticogulant. Cannot get CTA with his renal failure (7) History of bladder cancer Current Visit: No Status: Acute Code(s): Z85.51 - PERSONAL HISTORY OF MALIGNANT NEOPLASM OF BLADDER SNOMED Code(s): 707807729 Comment: - Urostomy in place without issues. - Supportive care (8) DVT prophylaxis Comment: - Eliquis Status and Disposition: Inpatient. Wean oxygen Will go to [place] tomorrow hopefully, currently needs authorization. Attestation Documenting Resident: Rekha Wen Supervising Physician: Jeevan Noyola Attending/Supervising Physician Comment: Agree with plan as outlined in Dr. Wen's note from today unless indicated. Improved Pending placement approval Attestation: This service has been performed in part by a resident under the direction of a teaching physician.I, Jeevan Noyola, performed the service, or was physically present during the critical, or ag portions of the service, furnished by the resident. I participated in the management of the patient.
[2019-10-10] MEDS: Atorvastatin* 40 MG TAB PO SCH (16:06)
[2019-10-10] MEDS: Acetaminophen TAB* 325 MG PO PRN (20:50)
[2019-10-10] MEDS: Apixaban* 5 MG TAB PO SCH (20:50)
[2019-10-11] MEDS: Lisinopril TAB* 5 MG PO SCH (08:41)
[2019-10-11] MEDS: guaiFENesin ER TAB 600 MG PO SCH ×2 (08:41→19:46)
[2019-10-11] MEDS: Apixaban* 5 MG TAB PO SCH ×2 (08:41→19:46)
[2019-10-11] MEDS: Metoprolol Succinate XL TAB* 25 MG PO SCH ×2 (08:41→19:46)
[2019-10-11] MEDS: Acetaminophen TAB* 325 MG PO PRN ×2 (08:49→19:46)
[2019-10-11] MEDS: cefTRIAXone(*) 1 GM in NS 0.9% 50 ML* 50 ML IVPB SCH (10:49)
--- NOTE | 2019-10-11 11:03 | DS ---
Resident Discharge Summary Discharge Summary: Date of Admission: 10/01/19 Date of Discharge: 10/11/2019 Admitting MD: Da Orourke MD Attending MD: Jeevan Noyola MD Primary Care Physician: Timothy Ramirez MD Home Medications Medication Instructions Recorded Confirmed Type Albuterol HFA INHALER* [Ventolin 2 puff INH Q6H PRN 10/01/19 10/01/19 History HFA Inhaler*] Aspirin EC TAB* [Ecotrin EC Low 81 mg PO DAILY 10/01/19 10/01/19 History Dose 81 MG*] Cholecalciferol TAB* [Vitamin D 400 unit PO DAILY 10/01/19 10/01/19 History TAB*] Cyanocobalamin TAB* [Vitamin B12 500 mcg PO DAILY 10/01/19 10/01/19 History TAB*] Loperamide CAP* [Imodium CAP*] 2 mg PO Q4H PRN 10/01/19 10/01/19 History Multivit-Min/FA/Lycopen/Lutein 1 tab PO DAILY 10/01/19 10/01/19 History [Centrum Silver Men Tablet] Zinc Gluconate [Zinc] 10 mg PO Q3D 10/01/19 10/01/19 History Amoxicillin/Clavulanate TAB* 875 mg PO BID #8 tab 10/11/19 Rx [Augmentin TAB 875*] Apixaban* [Eliquis*] 5 mg PO BID #0 tab 10/11/19 Rx Atorvastatin* [Lipitor 40 MG*] 40 mg PO 1700 #0 tab 10/11/19 Rx Benzonatate CAP* [Tessalon 100 MG 100 mg PO BID PRN cap 10/11/19 Rx CAP*] Lisinopril TAB* [Prinivil TAB 5 5 mg PO DAILY tab 10/11/19 Rx MG*] Metoprolol Succinate XL TAB* 25 mg PO BID tab.xl 10/11/19 Rx [Toprol XL TAB*] Disposition: [facility] Condition: Stable Primary Diagnosis: 1. Influenza A 2. Pneumonia 3. Klebsiella Pneumoniae Bacteremia 4. new onset atrial fibrillation 5. Heart failure with reduced ejection fraction Secondary Diagnosis: 1. Pulmonary fibrosis 2. Heart failure with reduced ejection fraction 3. Bladder cancer 4. Chronic hypertension 5. Chronic kidney disease Diagnostic Imaging: Transthoracic echocardiogram 10/01: EF 25%, global hypokinesis in left ventricle. CXR 10/02/19: right pleural effusion with right basilar atelectasis vs consolidation. Chest CT 10/02/19: large right pleural effusion, complete atelectasis of right middle lobe with compressive atelectasis of the basal segment of right lower lobe. There is mixed atelectasis and consolidation of the left lower lobe. Pertinent Laboratory Results: Blood tests on discharge CBC: WBC 10.4, Hb 10.6, plt 211 BMP: Na 142, K 4.4, bicarb 27, creatinine 1.36. Hospital Course: Jacob Wilkinson is a 84 y/o male with a history of pulmonary firbosis, heart failure with reduced ejection fraction, bladder cancer, chronic hypertension, chronic kidney disease, presented to ED for respiratory distress, and found to have sepsis with positive influenza A, pneumonia, and acute kidney injury. He was initially admitted to ICU with close monitoring. He was covered by tamiflu and treated with iv ceftriaxone for his pneumonia. His blood culture showed 4/4 bottle klebsiella pneumoniae pansensitive, the source of which likely from his pneumonia. He was also tested for urine tract infection in view of his bladder cancer with urostomy history , it showed E. coli and Alcaligenes which are both sensitive to ceftriaxone, this is more likely asymptomatic bacteriuria. His sepsis and BEL significantly improved with the above treatment. He was discharged with oral Augmentin for another 4 days to complete total 14 days of antibiotics course. His stay complicated by his new atrial fibrillation and heart failure with newly depressed EF from 40% to 25%. He had echocardiogram showing severe global hypokinesis of left ventricle. Cardiology consulted on this case, stress test was obtained, and it was felt this newly depressed EF is more likely due to his new AF instead of ischemic causes. His heart rate was controlled with metoprolol during his stay, he was started on Lovenox initially inpatient and switched to Eliquis eventually. Lisinopril was also added for medical optimization. He will follow up with strategy director outpatient for further followup. On the day of discharge, he was off O2, still had some cough, but no SOB, felt generally better but down in his mood. 12 point physical examination is unremarkable with a great improvement in lung sound (slight crackles in right lower lobe). He will be discharged to [facility]. Follow Up Instructions: Follow up with primary care physician and strategy director Dr. Marcos on discharge. There are a few new medications that we added for your heart benefit, also there are 4 more days of oral antibiotics that you need to complete. Watch for bleeding while on Eliquis, inform your primary care physician or seek medical advise if you noticed any black stool, bloody stool or other overt bleeding. In case of an emergency or after clinic hours, please go to your nearest Emergency Department. You may also call the [facility] tube bending machine operator at . Attestation Documenting Resident: Rekha Wen Supervising Physician: Jeevan Noyola Attending/Supervising Physician Comment: Agree with discharge as outlined by Dr. Wen here Seen on the day of discharge Discharge delayed by etna denial which was successfully appealed Patient feels much improved and on room air at the time of discharge No additional melena except the 1 episode >72 hrs prior to discharge After discharge: 1. Ensure PCP follow up 2. Ensure cardiology follow up 4-6 weeks Attestation: This service has been performed in part by a resident under the direction of a teaching physician.I, Jeevan Noyola, performed the service, or was physically present during the critical, or ag portions of the service, furnished by the resident. I participated in the management of the patient.
[2019-10-11] MEDS: Magnesium Oxide TAB* 400 MG PO SCH (12:03)
--- NOTE | 2019-10-11 16:45 | PN ---
Subjective Date of Service: 10/11/19 Interval History: Pt seen and examined at bedside Feels his breathing is much better since admission and improved since yesterday He was ambulatory today with PT Cough present but diminishing He is feeling a little down but not depressed and with no suicidal ideation Family History: Unchanged from Admission Social History: Unchanged from Admission Past Medical History: Unchanged from Admission Objective Active Medications: Acetaminophen (Tylenol Tab*) 650 mg PO Q6H PRN PRN Reason: MILD PAIN or TEMP > 100.4 Last Admin: 10/11/19 08:49 Dose: 650 mg Albuterol/Ipratropium (Duoneb (Albuterol 2.5 Mg/Ipratropium 0.5 Mg)) 1 neb INH Q6H PRN PRN Reason: SOB/WHEEZING Last Admin: 10/08/19 01:28 Dose: 1 neb Apixaban (Eliquis*) 5 mg PO BID [facility] Last Admin: 10/11/19 08:41 Dose: 5 mg Atorvastatin Calcium (Lipitor*) 40 mg PO 1700 [facility] Last Admin: 10/10/19 16:06 Dose: 40 mg Benzonatate (Tessalon Cap*) 100 mg PO BID PRN PRN Reason: COUGH Last Admin: 10/07/19 12:14 Dose: 100 mg Guaifenesin (Mucinex*) 600 mg PO BID [facility] Last Admin: 10/11/19 08:41 Dose: 600 mg Ceftriaxone Sodium 1 gm/ (Sodium Chloride) 50 mls @ 100 mls/hr IVPB Q24H [facility] Last Admin: 10/11/19 10:49 Dose: 100 mls/hr Lisinopril (Prinivil Tab*) 5 mg PO DAILY [facility] Last Admin: 10/11/19 08:41 Dose: 5 mg Loperamide HCl (Imodium Cap*) 2 mg PO Q4H PRN PRN Reason: DIARRHEA Melatonin (Melatonin) 3 mg PO BEDTIME PRN PRN Reason: INSOMNIA Last Admin: 10/05/19 21:31 Dose: 3 mg Metoprolol Succinate (Toprol Xl Tab*) 25 mg PO BID [facility] Last Admin: 10/11/19 08:41 Dose: 25 mg Ondansetron HCl (Zofran Inj*) 4 mg IV Q6H PRN PRN Reason: NAUSEA Polyethylene Glycol/Electrolytes (Miralax (17 Gm Dose Giacomo)) 17 gm PO ONCE ONE Stop: 10/12/19 10:47 Vital Signs - 8 hr 10/11/19 11:15 Temperature 97.5 F Pulse Rate 81 Respiratory 22 Rate Blood Pressure 126/62 (mmHg) O2 Sat by Pulse 94 Oximetry Oxygen Devices in Use Now: None - room air Appearance: NAD, sitting in chair Eyes: No Scleral Icterus, PERRLA Ears/Nose/Mouth/Throat: NL Teeth, Lips, Gums, Clear Oropharnyx Neck: NL Appearance and Movements; NL JVP Respiratory: Symmetrical Chest Expansion and Respiratory Effort, - - improving rhonchi in right base Cardiovascular: - - IRIR Abdominal: NL Sounds; No Tenderness; No Distention, No Hepatosplenomegaly, - - ileal conduit c/d/i Skin: No Rash or Ulcers Neurological: Alert and Oriented x 3 Result Diagrams: 10/10/19 13:10 10/09/19 06:19 Microbiology and Other Data: Microbiology 10/01/19 17:35 Aerobic Blood Culture - Preliminary Blood Venous Anaerobic Blood Culture - Preliminary Klebsiella Pneumoniae 10/01/19 17:35 Aerobic Blood Culture - Preliminary Blood Venous Klebsiella Pneumoniae Anaerobic Blood Culture - Preliminary Klebsiella Pneumoniae 10/01/19 21:40 Legionella Urinary Antigen - Final Urine Negative Legionella Antigen Streptococcus pneumoniae Ag Screen - Final Negative S. pneumo Antigen Assess/Plan/Problems-Billing Assessment: Patient is an 84 yo M pmhx HFrEF, possible pulmonary fibrosis, bladder cancer s/ p ileoconduit, p/w SOB found with with influenza A complicated by bacterial pneumonia, BEL, klebsiella bacteremia with course complicated by new AF, newly identified decreased EF and 1 episode of melena - Patient Problems (1) Flu Comment: - with acute hypoxic respiratory failure - Completed 5 days course of tamiflu - Respiratory failure now resolved and patient is ambulating on room air without need for oxygen (2) Atrial fibrillation Comment: -newly diagnosed and associated with newly identified depressed EF (25-30%) -rate controlled on metoprolol 25 BID -transitioned to eliquis BID (3) HFrEF (heart failure with reduced ejection fraction) Comment: - EF reduced to 25% from 40% - lexiscan completed without evidence of ischemia after discussion with cardiology (Dr. Marcos) - plan is for medical management and repeat TTE in 5 weeks to check for recovery of LVEF. Suspect rate related decline in EF in setting of previously unidentified atrial fibrillation - continue metoprolol and lisinopril - no plan for cardiac catheterization (4) Bacteremia Comment: - 4/4 bottles with GNRs, klebsiella sensitive to Ceftriaxone - Need abx 14 days in total (iv ceftriaxone currently) , will need doxycycline 5 days in total. - Repeat blood cx ordered w/ NGTD - E. coli in urine (5) Pneumonia Comment: - now on room air - Infiltrate on CXR and CT - Bacteremia-klebsiella - Continue Ceftriaxone and Doxycycline(10/01) - Large Effusion, Previously present. - Likely Bacterial Superinfection on Influenza. - Completed steroid course for adjunctive pneumonia therapy. (6) History of bladder cancer Current Visit: No Status: Acute Code(s): Z85.51 - PERSONAL HISTORY OF MALIGNANT NEOPLASM OF BLADDER SNOMED Code(s): 644704399 Comment: - Urostomy in place without issues. - Supportive care (7) Melena Comment: Single episode Serial CBCs with stable H/H No further e/o bleeding even after starting eliquis No need for further CBC to evaluate (8) DVT prophylaxis Comment: - Eliquis Status and Disposition: Ready for discharge. Pending results from [id number] review
[2019-10-11] MEDS: Atorvastatin* 40 MG TAB PO SCH (17:31)
[2019-10-12] MEDS: guaiFENesin ER TAB 600 MG PO SCH (07:59)
[2019-10-12] MEDS: Lisinopril TAB* 5 MG PO SCH (07:59)
[2019-10-12] MEDS: Apixaban* 5 MG TAB PO SCH (07:59)
[2019-10-12] MEDS: Metoprolol Succinate XL TAB* 25 MG PO SCH (07:59)
[2019-10-12] MEDS: cefTRIAXone(*) 1 GM in NS 0.9% 50 ML* 50 ML IVPB SCH (10:44)
[2019-10-12] MEDS: Acetaminophen TAB* 325 MG PO PRN (10:44)
[2019-10-12] MEDS ORDERED: Polyethylene Glycol 3350* 17 GM PACKET PO ONE (10:46)
[2019-10-12 15:48] VITALS: BP 136/67
--- NOTE | 2019-10-12 16:56 | DCNOTE ---
Subjective Date of Service: 10/12/19 Interval History: Seen today feel much better and ready for d/c Family History: Unchanged from Admission Social History: Unchanged from Admission Past Medical History: Unchanged from Admission Objective Vital Signs - 8 hr 10/12/19 10/12/19 11:15 15:15 Temperature 97 F 98 F Pulse Rate 64 99 Respiratory 22 20 Rate Blood Pressure 124/68 136/67 (mmHg) O2 Sat by Pulse 94 92 Oximetry Oxygen Devices in Use Now: None Appearance: NAD Eyes: No Scleral Icterus, PERRLA Ears/Nose/Mouth/Throat: NL Teeth, Lips, Gums, Mucous Membranes Moist Neck: NL Appearance and Movements; NL JVP, Trachea Midline Respiratory: Symmetrical Chest Expansion and Respiratory Effort, - - rhonci but improving Cardiovascular: - - irir Abdominal: NL Sounds; No Tenderness; No Distention Neurological: Alert and Oriented x 3 Result Diagrams: 10/10/19 13:10 10/09/19 06:19 Microbiology and Other Data: Microbiology 10/01/19 17:35 Aerobic Blood Culture - Preliminary Blood Venous Anaerobic Blood Culture - Preliminary Klebsiella Pneumoniae 10/01/19 17:35 Aerobic Blood Culture - Preliminary Blood Venous Klebsiella Pneumoniae Anaerobic Blood Culture - Preliminary Klebsiella Pneumoniae 10/01/19 21:40 Legionella Urinary Antigen - Final Urine Negative Legionella Antigen Streptococcus pneumoniae Ag Screen - Final Negative S. pneumo Antigen Assess/Plan/Problems-Billing Assessment: Patient is an 84 yo M pmhx HFrEF, possible pulmonary fibrosis, bladder cancer s/ p ileoconduit, p/w SOB found with with influenza A complicated by bacterial pneumonia, BEL, klebsiella bacteremia with course complicated by new AF, newly identified decreased EF and 1 episode of melena - Patient Problems (1) Flu (2) Atrial fibrillation Comment: -newly diagnosed and associated with newly identified depressed EF (25-30%) -rate controlled on metoprolol 25 BID -transitioned to eliquis BID (3) HFrEF (heart failure with reduced ejection fraction) Comment: - EF reduced to 25% from 40% - lexiscan completed without evidence of ischemia after discussion with cardiology (Dr. Marcos) - plan is for medical management and repeat TTE in 5 weeks to check for recovery of LVEF. Suspect rate related decline in EF in setting of previously unidentified atrial fibrillation - continue metoprolol and lisinopril - no plan for cardiac catheterization (4) Bacteremia Comment: - 4/4 bottles with GNRs, klebsiella sensitive to Ceftriaxone - Need abx 14 days in total (iv ceftriaxone currently) , will need doxycycline 5 days in total. - Repeat blood cx ordered w/ NGTD - E. coli in urine (5) Pneumonia Comment: will complete course of augmentin as o/p (6) History of bladder cancer (7) Melena Status and Disposition: Discharge now to [facility]
== END 2019-10-12 16:00 | DRG 871 ==
LOC: ED 13:21 → MEDTELE 16:45
PROVIDERS: ADMIT Internal Medicine; ATTEND Internal Medicine
DX: A41.59 Other Gram-negative sepsis (principal); I26.99 Other pulmonary embolism without acute cor pulmonale; N17.0 Acute kidney failure with tubular necrosis; J96.22 Acute and chronic respiratory failure with hypercapnia; J10.08 Influenza due to other identified influenza virus with other specified pneumonia; J15.9 Unspecified bacterial pneumonia; I13.0 Hypertensive heart and chronic kidney disease with heart failure and stage 1 through stage 4 chronic kidney disease, or unspecified chronic kidney disease; I50.22 Chronic systolic (congestive) heart failure; K92.1 Melena; I42.9 Cardiomyopathy, unspecified; I48.91 Unspecified atrial fibrillation; R65.20 Severe sepsis without septic shock; J84.10 Pulmonary fibrosis, unspecified; K57.90 Diverticulosis of intestine, part unspecified, without perforation or abscess without bleeding; R79.89 Other specified abnormal findings of blood chemistry; Z66 Do not resuscitate; D69.6 Thrombocytopenia, unspecified; N18.9 Chronic kidney disease, unspecified; E87.5 Hyperkalemia; I73.9 Peripheral vascular disease, unspecified; M19.90 Unspecified osteoarthritis, unspecified site; Z85.46 Personal history of malignant neoplasm of prostate; Z87.442 Personal history of urinary calculi; Z87.891 Personal history of nicotine dependence; Z85.51 Personal history of malignant neoplasm of bladder; Z79.82 Long term (current) use of aspirin; Z79.899 Other long term (current) drug therapy; Z88.1 Allergy status to other antibiotic agents
CPT/HCPCS: 36415; 36600; 71045; 71046; 71250; 78452; 78582; 80048; 80053; 80061; 81003; 81015; 82272; 82803; 83605; 83735; 83880; 84484; 85025; 85379; 85610; 86140; 87040; 87070; 87077; 87086; 87106; 87186; 87205; 87899; 93005; 93017; 93306; 93970; 94640; 99284; A9270-GY; A9502; A9540; A9558; J0696; J1650; J1940; J2785; J2920